=== PATIENT | female | born 1990 | race American Indian/Alaskan Native ===

== ENCOUNTER 2017-07-06 20:00 | Emergency (ER) | payer BC, MEDICAID ==
[2017-07-06 20:01] VITALS: BMI 25.8
[2017-07-06] MEDS ORDERED: Sodium Chloride 0.9% 1,000 ML IV STA (20:14)
--- NOTE | 2017-07-06 20:40 | ED PDOC ---
Arrival/HPI - General Chief Complaint: Female Genitourinary Time Seen by Provider: 07/06/17 20:08 Historian: Patient - History of Present Illness Narrative History of Present Illness (Text): 07/06/17 20:37 27yo female with no PMHx who present with complaint of dizziness x 2days. She reports vaginal bleeding for 3weeks. Notes heavy bleeding. States she uses 6pads daily soak through. Notes previous history of this symptom. States she was transfused in 2014 and thinks she might be anemic now, causing her dizziness. She however denies chest pain, SOB, diaphoresis, nausea, vomiting, any other complaint. Past Medical History - Provider Review Nursing Documentation Reviewed: Yes - Infectious Disease Hx of Infectious Diseases: None - Tetanus Immunization Tetanus Immunization: Unknown - Past Medical History Past Medical History: No Previous - Cardiac Hx Cardiac Disorders: No - Pulmonary Hx Respiratory Disorders: No - Neurological Hx Neurological Disorder: No - HEENT Hx HEENT Disorder: No - Renal Hx Renal Disorder: No - Endocrine/Metabolic Hx Endocrine Disorders: No - Hematological/Oncological Hx Blood Disorders: Yes Hx Anemia: Yes Hx Blood Transfusions: Yes - Integumentary Hx Dermatological Disorder: No - Musculoskeletal/Rheumatological Hx Musculoskeletal Disorders: No - Gastrointestinal Hx Gastrointestinal Disorders: No - Genitourinary/Gynecological Hx Genitourinary Disorders: No - Psychiatric Hx Psychophysiologic Disorder: No Hx Emotional Abuse: No Hx Physical Abuse: No Hx Substance Use: No - Past Surgical History Past Surgical History: No Previous - Anesthesia Hx Anesthesia: No - Suicidal Assessment Feels Threatened In Home Enviroment: No Family/Social History - Physician Review Nursing Documentation Reviewed: Yes Family/Social History: Unknown Family HX Smoking Status: Never Smoked Hx Alcohol Use: No Hx Substance Use: No Hx Substance Use Treatment: No Allergies/Home Meds Allergies/Adverse Reactions: Allergies No Known Allergies Allergy (Verified 07/06/17 20:11) Home Medications: Home Meds Medication Instructions Recorded Confirmed No Known Home Med 07/06/17 07/06/17 Review of Systems - Physician Review All systems were reviewed & negative as marked: Yes - Review of Systems Constitutional: Normal Eyes: Normal ENT: Normal Respiratory: Normal Cardiovascular: Normal Gastrointestinal: Normal Genitourinary Female: Vaginal Bleeding Musculoskeletal: Normal Skin: Normal Neurological: Dizziness. absent: Headache, Focal Weakness Endocrine: Normal Hemo/Lymphatic: Normal Psychiatric: Normal Physical Exam Vital Signs Reviewed: Yes Vital Signs Temp Pulse Resp BP Pulse Ox 07/06/17 21:35 98.9 F 88 18 111/74 100 07/06/17 20:15 88 20 110/75 100 Temperature: Afebrile Blood Pressure: Normal Pulse: Regular Respiratory Rate: Normal Appearance: Positive for: Well-Appearing, Non-Toxic, Comfortable Pain Distress: None Mental Status: Positive for: Alert and Oriented X 3 - Systems Exam Head: Present: Atraumatic, Normocephalic Pupils: Present: PERRL Extroacular Muscles: Present: EOMI Conjunctiva: Present: Normal Mouth: Present: Moist Mucous Membranes Neck: Present: Normal Range of Motion Respiratory/Chest: Present: Clear to Auscultation, Good Air Exchange. No: Respiratory Distress, Accessory Muscle Use Cardiovascular: Present: Regular Rate and Rhythm, Normal S1, S2. No: Murmurs Abdomen: Present: Normal Bowel Sounds. No: Tenderness, Distention, Peritoneal Signs Back: Present: Normal Inspection Upper Extremity: Present: Normal Inspection. No: Cyanosis, Edema Lower Extremity: Present: Normal Inspection. No: Edema Neurological: Present: GCS=15, CN II-XII Intact, Speech Normal, Motor Func Grossly Intact, Normal Sensory Function, Normal Cerebellar Funct, Gait Normal, Normal 2Pt Descrimination, Other (No focal neurological deficit) Skin: Present: Warm, Dry, Normal Color. No: Rashes Psychiatric: Present: Alert, Oriented x 3, Normal Insight, Normal Concentration Medical Decision Making ED Course and Treatment: 07/06/17 21:01 PT in ED for stated history. She was not in any distress in ED. H/H of 10.1 was noted. PT states she is already on iron pill from her STORE SALES CONSULTANT. Result was DW the pt. she was referred to her STORE SALES CONSULTANT. - Lab Interpretations Lab Results: 07/06/17 20:30 07/06/17 20:30 Lab Results 07/06/17 20:30: Urine Color Yellow, Urine Appearance Cloudy, Urine pH 6.0, Ur Specific [place] >= 1.030, Urine Protein Negative, Urine Glucose (UA) Negative, Urine Ketones Trace H, Urine Blood Large H, Urine Nitrate Negative, Urine Bilirubin Negative, Urine Urobilinogen 0.2, Ur Leukocyte Esterase Negative, Urine RBC Tntc, Urine WBC 2 - 5, Ur Epithelial Cells 3 - 4, Urine Bacteria Mod 07/06/17 20:30: Sodium 141, Potassium 4.2, Chloride 104, Carbon Dioxide 29, Anion Gap 12, BUN 12, Creatinine 0.7, Est GFR ( Amer) > 60, Est GFR (Non- Af Amer) > 60, Random Glucose 89, Calcium 9.2, Total Bilirubin 0.3, AST 25, ALT 26, Alkaline Phosphatase 73, Total Protein 7.5, Albumin 4.0, Globulin 3.5, Albumin/Globulin Ratio 1.1 07/06/17 20:30: PT 12.1, INR 1.06, APTT 26.8 07/06/17 20:30: WBC 5.3, RBC 3.32 L, Hgb 10.1 L, Hct 30.5 L, MCV 91.9, MCH 30.4 , MCHC 33.1, RDW 12.3, Plt Count 301, MPV 11.2 H, Gran % 48.4 L, Lymph % (Auto) 39.4 H, [place] % (Auto) 7.3 H, Eos % (Auto) 4.5, Baso % (Auto) 0.4, Gran # 2.57, Lymph # (Auto) 2.1, [place] # (Auto) 0.4, Eos # (Auto) 0.2, Baso # (Auto) 0.02 - Medication Orders Current Medication Orders: Discontinued Medications Sodium Chloride (Sodium Chloride 0.9%) 1,000 mls @ 999 mls/hr IV .Q1H1M STA Stop: 07/06/17 21:14 Last Admin: 07/06/17 20:40 Dose: 999 mls/hr eMAR Start Stop Document 07/06/17 20:40 SF (Rec: 07/06/17 20:47 SF [facility] [id number]) Intravenous Solution Start Date 07/06/17 Start Time 20:40 End Date 07/06/17 End time 21:41 Total Infusion Time 61 Ketorolac Tromethamine (Toradol) 30 mg IVP STAT STA Stop: 07/06/17 20:15 Last Admin: 07/06/17 20:47 Dose: 30 mg MAR Pain Assessment Document 07/06/17 20:47 SF (Rec: 07/06/17 20:47 SF [facility] [id number]) Pain Reassessment Is this a pain reassessment? Yes Sleep Is patient sleeping during reassessment? No Presence of Pain Presence of Pain Yes Pain Scale Used Pain Scale Used Numeric IVP Administration Document 07/06/17 20:47 SF (Rec: 07/06/17 20:47 SF [facility] [id number]) Charges for Administration # of IVP Administrations 1 Disposition/Present on Arrival - Present on Arrival Any Indicators Present on Arrival: No History of DVT/PE: No History of Uncontrolled Diabetes: No Urinary Catheter: No History of Decub. Ulcer: No History Surgical Site Infection Following: None - Disposition Have Diagnosis and Disposition been Completed?: Yes Diagnosis: Dysfunctional uterine bleeding, Dizziness Disposition: HOME/ ROUTINE Disposition Time: 21:00 Patient Plan: Discharge Condition: STABLE Discharge Instructions (ExitCare): Dizziness, Nonvertigo, (DC), Heavy Periods ( DC) Additional Instructions: Follow up with your STORE SALES CONSULTANT Return to ED for any new symptoms Referrals: José Luis Llanos, [Primary Care Provider] - Follow up with primary Esperanza Bales MD [Staff Provider] - Follow up with primary Forms: [employer] (Ugandan), WORK NOTE
[2017-07-06 20:49] LABS: BASO # 0.02 K/mm3 (0.0-2.0); BASO % 0.4 % (0.0-3.0); EOS # 0.2 (0.0-0.7); EOS % 4.5 % (1.5-5.0); GRAN # 2.57 (1.4-6.5); GRAN % 48.4 % (50.0-68.0); HEMOGLOBIN 10.1 g/dL (12.0-16.0); LYMPH # 2.1 (1.2-3.4); LYMPH % 39.4 % (22.0-35.0); MEAN CELL VOLUME 91.9 fl (80.0-105.0); MEAN CORPUSCULAR HEMOGLOBIN 30.4 pg (25.0-35.0); MEAN CORPUSCULAR HGB CONC 33.1 g/dl (31.0-37.0); MEAN PLATELET VOLUME 11.2 fl (7.0-11.0); MONO # 0.4 (0.1-0.6); MONO % 7.3 % (1.0-6.0); RBC 3.32 10^6/uL (3.5-6.1); RED CELL DISTRIBUTION WIDTH 12.3 % (11.5-14.5); WHITE BLOOD COUNT 5.3 10^3/ul (4.5-11.0)
[2017-07-06 20:51] LABS: URINE BILIRUBIN NEGATIVE (NEGATIVE); URINE BLOOD LARGE (NEGATIVE); URINE GLUCOSE (UA) NEGATIVE (NEGATIVE); URINE LEUKOCYTE ESTERASE NEGATIVE Leu/uL (NEGATIVE); URINE NITRATE NEGATIVE (NEGATIVE); URINE PROTEIN NEGATIVE mg/dL (<30 mg/dL); URINE UROBILINOGEN 0.2 E.U./dL (<1 E.U./dL)
[2017-07-06 20:53] LABS: URINE COLOR YELLOW (YELLOW)
[2017-07-06 20:54] LABS: URINE APPEARANCE CLOUDY (CLEAR)
[2017-07-06 20:57] LABS: INR 1.06 (0.93-1.08); PARTIAL THROMBOPLASTIN TIME 26.8 Seconds (25.1-36.5); PROTHROMBIN TIME 12.1 SECONDS (9.4-12.5)
[2017-07-06 20:58] LABS: ALB/GLOB RATIO 1.1 (1.1-1.8); ALT/SGPT 26 U/L (7-56); AST/SGOT 25 U/L (14-36); BLOOD UREA NITROGEN 12 mg/dL (7-21); CALCIUM 9.2 mg/dL (8.4-10.5); GFR AFRICAN-AMERICAN > 60; GFR NON-AFRICAN AMERICAN > 60
[2017-07-06 21:08] LABS: URINE RBC TNTC /hpf (0-2)
[2017-07-06 21:09] LABS: URINE BACTERIA MOD (NEG)
[2017-07-06 21:51] VITALS: BP 111/74; PULSE 88; RESP 18; TEMP 98.9; O2SAT 100
== END 2017-07-06 21:32 | disposition home or self-care (01) ==
LOC: ED 20:00
DX: N93.8 Other specified abnormal uterine and vaginal bleeding (principal); R42 Dizziness and giddiness; D64.9 Anemia, unspecified
CPT/HCPCS: 80053; 81001; 85025; 85610; 85730; 96361; 96374; 99284; J1885; J7040

== ENCOUNTER 2017-08-30 05:25 | Inpatient (IN) | payer MEDICAID ==
[2017-08-30 05:25] VITALS: BMI 25.8
--- NOTE | 2017-08-30 06:21 | ED PDOC ---
Arrival/HPI - General Chief Complaint: Medical Clearance Time Seen by Provider: 08/30/17 05:59 Historian: Patient - History of Present Illness Narrative History of Present Illness (Text): 08/30/17 06:19 A 27 year old female, whose past medical history includes anemia, presents to the emergency department complaining of vaginal bleeding for two months and intermittent lower pelvic pain. 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 Patient notes that today she passes few clots. Reports she had a blood transfusion two years ago due to three weeks of vaginal bleeding. Patient also reports generalized malaise and generalized weakness but denies any other complaints at this time. Time/Duration: Other (2 months) Symptom Onset: Sudden Symptom Course: Unchanged Activities at Onset: Rest Context: Home Past Medical History - Provider Review Nursing Documentation Reviewed: Yes - Infectious Disease Hx of Infectious Diseases: None - Tetanus Immunization Tetanus Immunization: Unknown - Past Medical History Past Medical History: No Previous - Cardiac Hx Cardiac Disorders: No - Pulmonary Hx Respiratory Disorders: No - Neurological Hx Neurological Disorder: No - HEENT Hx HEENT Disorder: No - Renal Hx Renal Disorder: No - Endocrine/Metabolic Hx Endocrine Disorders: No - Hematological/Oncological Hx Blood Disorders: Yes Hx Anemia: Yes Hx Blood Transfusions: Yes - Integumentary Hx Dermatological Disorder: No - Musculoskeletal/Rheumatological Hx Musculoskeletal Disorders: No - Gastrointestinal Hx Gastrointestinal Disorders: No - Genitourinary/Gynecological Hx Genitourinary Disorders: No Other/Comment: dysfunctial uterine bleeding - Psychiatric Hx Psychophysiologic Disorder: No Hx Emotional Abuse: No Hx Physical Abuse: No Hx Substance Use: No - Past Surgical History Past Surgical History: No Previous - Anesthesia Hx Anesthesia: No - Suicidal Assessment Feels Threatened In Home Enviroment: No Family/Social History - Physician Review Nursing Documentation Reviewed: Yes Family/Social History: No Known Family HX Smoking Status: Never Smoked Hx Alcohol Use: Yes Hx Substance Use: No Hx Substance Use Treatment: No Allergies/Home Meds Allergies/Adverse Reactions: Allergies No Known Allergies Allergy (Verified 08/30/17 06:08) Home Medications: Home Meds Medication Instructions Recorded Confirmed Iron Pills 1 tab PO DAILY 08/30/17 08/30/17 Review of Systems - Physician Review All systems were reviewed & negative as marked: Yes - Review of Systems Constitutional: Other (generalized malaise, generalized weakness) Gastrointestinal: Other (pelvic pain) Genitourinary Female: Vaginal Bleeding Physical Exam Vital Signs Reviewed: Yes Vital Signs Temp Pulse Resp BP Pulse Ox 08/30/17 06:08 98.1 F 87 18 111/66 100 Temperature: Afebrile Blood Pressure: Normal Pulse: Regular Respiratory Rate: Normal Appearance: Positive for: Well-Appearing, Non-Toxic, Comfortable Pain Distress: None Mental Status: Positive for: Alert and Oriented X 3 - Systems Exam Head: Present: Atraumatic, Normocephalic Pupils: Present: PERRL Extroacular Muscles: Present: EOMI Conjunctiva: Present: Normal Mouth: Present: Moist Mucous Membranes Neck: Present: Normal Range of Motion Respiratory/Chest: Present: Clear to Auscultation, Good Air Exchange. No: Respiratory Distress, Accessory Muscle Use Cardiovascular: Present: Regular Rate and Rhythm, Normal S1, S2. No: Murmurs Abdomen: No: Tenderness, Distention, Peritoneal Signs Back: Present: Normal Inspection Upper Extremity: Present: Normal Inspection. No: Cyanosis, Edema Lower Extremity: Present: Normal Inspection. No: Edema Neurological: Present: GCS=15, CN II-XII Intact, Speech Normal Skin: Present: Warm, Dry, Normal Color. No: Rashes Psychiatric: Present: Alert, Oriented x 3, Normal Insight, Normal Concentration Medical Decision Making ED Course and Treatment: 08/30/17 06:20 Impression: A 27 year old female with vaginal bleeding and pelvic pain. Plan: -- labs -- Urinalysis -- US transvaginal -- Reassess and disposition Prior Visits: Notes and results from previous visits were reviewed. Patient was last seen in the emergency department on 07/06/17 for evaluation of dizziness and vaginal bleeding. Case endorsed to /pending T/V ultrasound/labs/reassess/final disposition - Lab Interpretations I have reviewed the lab results: Yes - RAD Interpretation Radiology Orders: 08/30/17 06:18 TRANSVAGINAL [US] Stat - Scribe Statement The provider has reviewed the documentation as recorded by the Scribe Jenna Calderon Provider Scribe Attestation: All medical record entries made by the Scribe were at my direction and personally dictated by me. I have reviewed the chart and agree that the record accurately reflects my personal performance of the history, physical exam, medical decision making, and the department course for this patient. I have also personally directed, reviewed, and agree with the discharge instructions and disposition. Disposition/Present on Arrival - Present on Arrival Any Indicators Present on Arrival: No History of DVT/PE: No History of Uncontrolled Diabetes: No Urinary Catheter: No History of Decub. Ulcer: No History Surgical Site Infection Following: None - Disposition Have Diagnosis and Disposition been Completed?: No Diagnosis: Vaginal bleeding, abnormal Disposition Time: 07:00 Condition: STABLE Forms: [employer] (Kittitian)
[2017-08-30 07:03] LABS: MEAN CELL VOLUME 75.9 fl (80.0-105.0); MEAN CORPUSCULAR HEMOGLOBIN 22.4 pg (25.0-35.0); MEAN CORPUSCULAR HGB CONC 29.5 g/dl (31.0-37.0); MEAN PLATELET VOLUME 11.3 fl (7.0-11.0); RBC 2.99 10^6/uL (3.5-6.1); RED CELL DISTRIBUTION WIDTH 17.3 % (11.5-14.5); URINE BILIRUBIN SMALL (NEGATIVE); URINE BLOOD LARGE (NEGATIVE); URINE GLUCOSE (UA) NEGATIVE (NEGATIVE); URINE LEUKOCYTE ESTERASE NEGATIVE Leu/uL (NEGATIVE); URINE PROTEIN 100 mg/dL (<30 mg/dL); WHITE BLOOD COUNT 3.1 10^3/ul (4.5-11.0)
[2017-08-30 07:07] LABS: ALB/GLOB RATIO 1.2 (1.1-1.8); ALBUMIN 3.7 g/dL (3.0-4.8); ALT/SGPT 27 U/L (7-56); AST/SGOT 22 U/L (14-36); BLOOD UREA NITROGEN 16 mg/dL (7-21); CALCIUM 8.7 mg/dL (8.4-10.5); GFR AFRICAN-AMERICAN > 60; GFR NON-AFRICAN AMERICAN > 60; URINE APPEARANCE CLOUDY (CLEAR); URINE COLOR YELLOW (YELLOW)
--- NOTE | 2017-08-30 07:07 | ED PDOC ---
Physical Exam Vital Signs Reviewed: Yes Vital Signs Temp Pulse Resp BP Pulse Ox 08/30/17 07:29 97.8 F 71 18 111/64 99 08/30/17 06:08 98.1 F 87 18 111/66 100 Temperature: Afebrile Blood Pressure: Normal Pulse: Regular Respiratory Rate: Normal Appearance: Positive for: Well-Appearing, Non-Toxic, Comfortable Pain Distress: None Mental Status: Positive for: Alert and Oriented X 3 - Systems Exam Abdomen: Present: Tenderness (lower pelvic), Normal Bowel Sounds. No: Distention, Rebound, Guarding, McBurney's Point Tender, Rovsing's Sign Present Genitourinary/Pelvic Exam: Present: Normal External Genitalia, Vaginal Bleeding (mild pooling), Cervical os Closed, Other (diffuse uterus tenderness; neg chandellier sign). No: Vaginal Discharge, Cervical Motion Tendernes Back: Present: Normal Inspection. No: CVA Tenderness Medical Decision Making ED Course and Treatment: 08/30/17 07:06 Patient endorsed to me by Dr. Mccloud at 07:00, pending ultrasound result and re-evaluation. Report Date : 08/30/2017 08:05:00 EXAM: US Pelvis, Transvaginal Dictated By: Haley Pacheco MD IMPRESSION: Thickened endometrial stripe measuring 1.9 cm. Clinical correlation with menstrual cycle recommended. Multiple small ovarian follicles. Clinical correlation recommended to exclude polycystic ovarian syndrome. No evidence of ovarian torsion. 08/30/17 08:36 Patient's hemoglobin 6. Type and crossed 2 units. Consent obtained with FLAVIA Bustamante as witness. Case discussed with Dr. Osuna OBGYN, who recommends just blood transfusion at this time and repeat HGB. Case discussed with Dr. Lluvia Glasgow who agrees to admit patient to Medical floor for symptomatic anemia/Vaginal Bleeding - Lab Interpretations Lab Results: 08/30/17 06:53 08/30/17 06:53 Lab Results 08/30/17 06:53: Urine Color Yellow, Urine Appearance Cloudy, Urine pH 6.0, Ur Specific [place] >= 1.030, Urine Protein 100 H, Urine Glucose (UA) Negative, Urine Ketones Trace H, Urine Blood Large H, Urine Nitrate Positive H, Urine Bilirubin Small H, Urine Urobilinogen 1.0 H, Ur Leukocyte Esterase Negative, Urine RBC Tntc, Urine WBC 2 - 5, Ur Epithelial Cells 3 - 4, Urine Bacteria Many , Urine HCG, Qual Negative 08/30/17 06:53: PT 12.9 H, INR 1.12 H, APTT 25.1 08/30/17 06:53: Blood Type O POSITIVE, Antibody Screen Negative, Crossmatch See Detail, BBK History Checked Patient has bt 08/30/17 06:53: WBC 3.1 L D, RBC 2.99 L, Hgb 6.7 L* D, Hct 22.7 L, MCV 75.9 L D , MCH 22.4 L, MCHC 29.5 L, RDW 17.3 H, Plt Count 196, MPV 11.3 H 08/30/17 06:53: Sodium 143, Potassium 3.7, Chloride 109 H, Carbon Dioxide 23, Anion Gap 14, BUN 16, Creatinine 0.6 L, Est GFR ( Amer) > 60, Est GFR ( Non-Af Amer) > 60, Random Glucose 99, Calcium 8.7, Total Bilirubin < 0.1 L, AST 22, ALT 27, Alkaline Phosphatase 68, Total Protein 6.8, Albumin 3.7, Globulin 3.1, Albumin/Globulin Ratio 1.2 - RAD Interpretation Radiology Orders: 08/30/17 06:18 TRANSVAGINAL [US] Stat - Medication Orders Current Medication Orders: Discontinued Medications Ketorolac Tromethamine (Toradol) 30 mg IVP STAT STA Stop: 08/30/17 07:14 Last Admin: 08/30/17 07:41 Dose: 30 mg MAR Pain Assessment Document 08/30/17 07:41 SRE (Rec: 08/30/17 07:43 SRE [id number]) Pain Reassessment Is this a pain reassessment? Yes Sleep Is patient sleeping during reassessment? No Presence of Pain Presence of Pain Yes Pain Scale Used Pain Scale Used Numeric Location Pain Location Body Site Abdomen Description Description Intermittent IVP Administration Document 08/30/17 07:41 SRE (Rec: 08/30/17 07:43 SRE [id number]) Charges for Administration # of IVP Administrations 1 - Scribe Statement The provider has reviewed the documentation as recorded by the Scribe Viky Okeefe Provider Scribe Attestation: All medical record entries made by the Scribe were at my direction and personally dictated by me. I have reviewed the chart and agree that the record accurately reflects my personal performance of the history, physical exam, medical decision making, and the department course for this patient. I have also personally directed, reviewed, and agree with the discharge instructions and disposition. Disposition/Present on Arrival - Present on Arrival Any Indicators Present on Arrival: No History of DVT/PE: No History of Uncontrolled Diabetes: No Urinary Catheter: No History of Decub. Ulcer: No History Surgical Site Infection Following: None - Disposition Have Diagnosis and Disposition been Completed?: Yes Diagnosis: Vaginal bleeding, abnormal Disposition: HOSPITALIZED Disposition Time: 08:37 Patient Plan: Admission Patient Problems: Current Active Problems Problem Status Onset Dysfunctional uterine bleeding Acute Vaginal bleeding, abnormal Acute Condition: GUARDED Forms: [employer] (Cameroonian)
[2017-08-30 07:08] LABS: HCG,QUALITATIVE URINE NEGATIVE (NEGATIVE)
[2017-08-30 07:31] LABS: INR 1.12 (0.93-1.08); PARTIAL THROMBOPLASTIN TIME 25.1 Seconds (25.1-36.5); PROTHROMBIN TIME 12.9 SECONDS (9.4-12.5); URINE BACTERIA MANY (NEG); URINE RBC TNTC /hpf (0-2)
[2017-08-30 07:38] LABS: HEMOGLOBIN 6.7 g/dL (12.0-16.0)
--- NOTE | 2017-08-30 08:06 | US ---
EXAM: US Pelvis, Transvaginal CLINICAL HISTORY: 27 years old, female; Pain; Pelvic pain; Additional info: Pain/vaginal bleeding TECHNIQUE: Real-time transvaginal pelvic ultrasound (complete) with image documentation. Transvaginal imaging was used for better evaluation of the endometrium and adnexa. COMPARISON: US - TRANSVAGINAL 2015-04-26 10:09 FINDINGS: Uterus/cervix: Unremarkable measuring 8.5 x 4.5 x 5.2 cm. The endometrial stripe is thickened measuring 1.9 cm. No myometrial mass. Right ovary: The right ovary measures 4.1 x 3.3 x 3.6 cm. There are multiple small peripheral follicles measuring up to 1.3 cm. No mass. Normal blood flow. Left ovary: The left ovary measures 4.0 x 2.8 x 3.5 cm. There are multiple small peripheral follicles measuring up to 1.1 cm. No mass. Normal blood flow. Free fluid: Trace pelvic free fluid. Bladder: Empty bladder which cannot be evaluated with this probe. IMPRESSION: Thickened endometrial stripe measuring 1.9 cm. Clinical correlation with menstrual cycle recommended. Multiple small ovarian follicles. Clinical correlation recommended to exclude polycystic ovarian syndrome. No evidence of ovarian torsion.
[2017-08-30 09:43] LABS: TROPONIN I < 0.01 ng/mL
[2017-08-30] MEDS ORDERED: Sodium Chloride 0.9% 1,000 ML IV SCH (10:00)
[2017-08-30] MEDS: cefTRIAXone 1 gm 1 GM/100 ML BAG IVPB SCH (10:30)
[2017-08-30] MEDS: POLYETHYLENE GLYCOL 3350 17 GM/Dose PACKET PO SCH ×2 (10:47→17:40)
[2017-08-30 10:57] LABS: IRON 16 ug/dL (45-180)
[2017-08-30 11:06] LABS: % IRON SATURATION 4 % (20-55); TOTAL IRON BINDING CAPACITY 386 ug/dL (265-497)
[2017-08-30] MEDS ORDERED: Pneumococcal 23-Valent Vaccine IM ONE (13:56)
--- NOTE | 2017-08-30 15:48 | CP.PCM.HP ---
<Mt Negrete - Last Filed: 08/30/17 16:13> History of Present Illness - History of Present Illness History of Present Illness: IM H&P for Hospitalist Service CC: weakness, vaginal bleeding and clots This is a 27 yo F with PMH of anemia, and anemia 2/2 heavy vaginal bleeding requiring blood transfusion in 2014 who presents with another episode of prolonged vaginal bleeding causing weakness, fatigue, dizziness with exertion, and near-syncope. Pt reports heavy vaginal bleeding for approximately 3 weeks, of intermittent severity, from soaking a pad every 4-5 hrs up to soaking through a pad every hour. Reports that her fatigue/dizziness/near-syncope was similar to that experienced during her serious bleed in 2015. Reports 1 , normal in 2013, no C-sections, no abnormal bleeding when giving . No personal or family hx of bleeding disorders. Reports periods have always been irregular and heavy since menarche at age 15, but only since her child's has she ever had bleeding like this. After last bleeding, she was transfused in ED, sent to follow up with her OB-Tool Analyst (Dr. Jennifer Smith) in the office that day, and underwent D&C. She also reports seeing her OB-obgyn hospitalist physician 6 weeks ago, and at that time, underwent workup for STDs (negative, and not sexually active since) and anemia (positive, started on iron). Reports unable to tolerate PO TID iron, makes her nauseous and vomit, only able to tolerate once daily dosing. Reports no hematuria, melena, hematochezia, hemoptysis, or hematemesis. Denies actual syncopal episode. Admits to constipation, BM once every 3-4 days, which she reports is her baseline, and also reports urinary frequency for 3-4 days (feels like needs to urinate every hour). Denies fevers , chills, shortness of breath at rest, chest pain (at rest or with exertion), PO intolerance, focal weakness or paresthesias, vision changes, or room- spinning sensation at rest. All other ROS in 12-system review negative. Of note, Hgb in the ED was 6.7, so after discussion with OB-Tool Analyst, 2 units of pRBCs were ordered for transfusion. Additionally, a transvaginal US was obtained, which was notable for multiple small ovarian follicles bilaterally. PMH: as above PSH: denies Fam Hx: HTN in mother, otherwise pt unsure, unaware of any family hx of bleeding disorders Soc Hx: denies tobacco, alcohol, illicits/IVDA sexually active, not using protection, multiple partners, hx of Trichomonas in 2004 otherwise no STD hx, reports negative STD w/u at OB-Tool Analyst's 6 weeks prior and not sexually active since that time PMD: None OB-Tool Analyst: Dr. Jennifer Smith Present on Admission - Present on Admission Any Indicators Present on Admission: No History of DVT/PE: No History of Uncontrolled Diabetes: No Urinary Catheter: No Review of Systems - Review of Systems All systems: reviewed and no additional remarkable complaints except (as per HPI ) Past Patient History - Infectious Disease Hx of Infectious Diseases: None - Tetanus Immunizations Tetanus Immunization: Unknown - Past Social History Smoking Status: Never Smoked - CARDIAC Hx Cardiac Disorders: No - PULMONARY Hx Respiratory Disorders: No - NEUROLOGICAL Hx Neurological Disorder: No - HEENT Hx HEENT Problems: No - RENAL Hx Chronic Kidney Disease: No - ENDOCRINE/METABOLIC Hx Endocrine Disorders: No - HEMATOLOGICAL/ONCOLOGICAL Hx Blood Disorders: Yes Hx Anemia: Yes - INTEGUMENTARY Hx Dermatological Problems: No - MUSCULOSKELETAL/RHEUMATOLOGICAL Hx Musculoskeletal Disorders: No Hx Falls: No - GASTROINTESTINAL Hx Gastrointestinal Disorders: No - GENITOURINARY/GYNECOLOGICAL Hx Genitourinary Disorders: No - PSYCHIATRIC Hx Psychophysiologic Disorder: No - SURGICAL HISTORY Hx Surgeries: No - ANESTHESIA Hx Anesthesia: No Meds Allergies/Adverse Reactions: Allergies Allergy/AdvReac Type Severity Reaction Status Date / Time No Known Allergies Allergy Verified 08/30/17 06:08 Physical Exam - Constitutional Appears: Non-toxic, No Acute Distress - Head Exam Head Exam: ATRAUMATIC, NORMAL INSPECTION, NORMOCEPHALIC - Eye Exam Eye Exam: EOMI, PERRL. absent: Conjunctival injection, Normal appearance, Scleral icterus Pupil Exam: NORMAL ACCOMODATION, PERRL. absent: Fixed, Irregular, Unequal Additional comments: pale conjunctiva bilaterally - ENT Exam ENT Exam: Mucous Membranes Moist - Neck Exam Neck exam: Positive for: Full Rom, Normal Inspection - Respiratory Exam Respiratory Exam: Clear to Auscultation Bilateral, NORMAL BREATHING PATTERN. absent: Accessory Muscle Use, Decreased Breath Sounds, Prolonged Expiratory Phase, Rales, Rhonchi, Wheezes - Cardiovascular Exam Cardiovascular Exam: REGULAR RHYTHM, RRR, +S1, +S2. absent: Bradycardia, Tachycardia, Irregular Rhythm, JVD, +S4 - GI/Abdominal Exam GI & Abdominal Exam: Normal Bowel Sounds, Soft. absent: Diminished Bowel Sounds , Distended, Firm, Hyperactive Bowel Sounds, Rigid, Tenderness - Extremities Exam Extremities exam: Positive for: normal capillary refill, normal inspection, pedal pulses present. Negative for: calf tenderness, pedal edema, tenderness - Back Exam Back exam: absent: CVA tenderness (L), CVA tenderness (R) - Neurological Exam Neurological exam: Alert, Oriented x3 Additional comments: awake and alert, following all commands, moving all extremities spontaneously motor appears grossly intact and equal - Psychiatric Exam Psychiatric exam: Normal Affect, Normal Mood - Skin Skin Exam: Dry, Intact, Normal Color, Warm Results - Vital Signs Recent Vital Signs: Last Vital Signs Temp 98.1 F 08/30/17 13:14 Pulse 68 08/30/17 13:14 Resp 18 08/30/17 13:35 BP 114/67 08/30/17 13:14 Pulse Ox 100 08/30/17 09:07 - Labs Result Diagrams: 08/30/17 06:53 08/30/17 06:53 Labs: Laboratory Results - last 24 hr 08/30/17 08/30/17 08/30/17 09:00 10:30 10:30 Iron 16 L TIBC 386 % Saturation 4 L Troponin I < 0.01 TSH 3rd Generation 0.78 Assessment & Plan - Assessment and Plan (Free Text) Assessment: This is a 27 yo F with PMH of anemia, and anemia 2/2 heavy vaginal bleeding requiring blood transfusion in 2014 who presents with another episode of prolonged vaginal bleeding causing weakness, fatigue, dizziness with exertion, and near-syncope. She is being admitted for observation due to symptomatic blood loss anemia 2/2 heavy vaginal bleeding, pending transfusion of 2 units pRBCs. Plan: 1) Vaginal bleeding -etiology unclear, pt denies trauma, not sexually active in last 6 weeks, no recent pregnancies; possibly 2/2 PCOS given transvaginal US findings -Transvaginal US obtained, notable for multiple small ovarian follicles -Hgb 6.7, pending 2 units pRBCs, will recheck H&H 1 hr after last unit transfused to determine if additional transfusions needed -TSH, total and free testosterone, LH, FSH, and androstenedione ordered to assess for possible PCOS, f/u -OB-Tool Analyst consulted, as per ED attending, recs transfusion pRBCs and follow up; appreciate any further recs 2) Urinary frequency -UA notable for large blood, positive nitrates, TNTC RBCs, Many bacteria -blood likely 2/2 vaginal bleeding, not UTI, but Nitrates and bacteria in setting of urinary freq highly suspicious -Urine culture ordered, f/u -started on rocephin 1g IVPB daily 3) Hx iron deficiency anemia -likely due to irregular and heavy periods (possibly 2/2 PCOS) -iron panel ordered -pt unable to tolerate PO iron TID, may benefit from IV Venofer dose, will await iron panel results -chronic constipation may be cause of PO iron intolerance, started pt on Miralax BID to improve BM frequency (currently once per 3-4 days), possibly improve PO iron intake Dispo: Tele obs, pending H&H recheck, IV abx for likely UTI FEN: HHD, NS 150cc/hr x1 bag Access: Peripheral IV Consults: OB-Tool Analyst Ppx: pepcid for GI, SCDs for DVT (avoid AC in setting of acute bleeding) Pt seen, reviewed, and discussed with attending, Dr. Glasgow. Decision To Admit - Pt Status Changed To: Hospital Disposition Of: Observation - . Bed Request Type: Telemetry <Lluvia Glasgow - Last Filed: 08/31/17 14:25> Results - Vital Signs Recent Vital Signs: Last Vital Signs Temp 98.4 F 08/31/17 06:00 Pulse 65 08/31/17 06:00 Resp 18 08/31/17 06:00 BP 117/56 L 08/31/17 06:00 Pulse Ox 100 08/31/17 06:00 - Labs Result Diagrams: 08/31/17 06:00 08/31/17 06:00 Labs: Laboratory Results - last 24 hr 08/30/17 08/30/17 08/31/17 09:00 17:10 06:00 WBC 4.2 L D RBC 3.87 Hgb 9.3 L D 9.3 L Hct 29.8 L 30.1 L MCV 77.8 L MCH 24.0 L MCHC 30.9 L RDW 16.8 H Plt Count 167 MPV 10.6 Gran % 48.2 L Lymph % (Auto) 36.9 H Todd % (Auto) 8.2 H Eos % (Auto) 6.2 H Baso % (Auto) 0.5 Gran # 2.01 Lymph # (Auto) 1.5 Todd # (Auto) 0.3 Eos # (Auto) 0.3 Baso # (Auto) 0.02 PT INR APTT Sodium Potassium Chloride Carbon Dioxide Anion Gap BUN Creatinine Est GFR ( Amer) Est GFR (Non-Af Amer) Random Glucose Calcium Phosphorus Magnesium Ferritin 4.4 Total Bilirubin AST ALT Alkaline Phosphatase Total Protein Albumin Globulin Albumin/Globulin Ratio FSH 3rd Generation 5.2 Luteinizing Hormone 16.5 08/31/17 08/31/17 06:00 06:00 WBC RBC Hgb Hct MCV MCH MCHC RDW Plt Count MPV Gran % Lymph % (Auto) Todd % (Auto) Eos % (Auto) Baso % (Auto) Gran # Lymph # (Auto) Todd # (Auto) Eos # (Auto) Baso # (Auto) PT 12.6 H INR 1.09 H APTT 25.5 Sodium 143 Potassium 3.9 Chloride 109 H Carbon Dioxide 26 Anion Gap 13 BUN 11 Creatinine 0.7 Est GFR ( Amer) > 60 Est GFR (Non-Af Amer) > 60 Random Glucose 92 Calcium 8.6 Phosphorus 3.5 Magnesium 1.9 Ferritin Total Bilirubin 0.2 AST 20 ALT 24 Alkaline Phosphatase 60 Total Protein 6.4 Albumin 3.5 Globulin 2.9 Albumin/Globulin Ratio 1.2 FSH 3rd Generation Luteinizing Hormone Attending/Attestation - Attestation I have personally seen and examined this patient.: Yes I have fully participated in the care of the patient.: Yes I have reviewed all pertinent clinical information: Yes Notes (Text): I have seen and examined the patient at bedside. Agree with the above note. Will give 2 units of PRBC. TV ultrasound result noted. Upon discharge patient will follow up with Dr Smith.
[2017-08-30 16:55] LABS: FSH 5.2 mIU/mL
[2017-08-30 17:12] LABS: FERRITIN 4.4 ng/mL
[2017-08-30 17:20] LABS: HEMOGLOBIN 9.3 g/dL (12.0-16.0)
[2017-08-31 06:27] LABS: BASO # 0.02 K/mm3 (0.0-2.0); BASO % 0.5 % (0.0-3.0); EOS # 0.3 (0.0-0.7); EOS % 6.2 % (1.5-5.0); GRAN # 2.01 (1.4-6.5); GRAN % 48.2 % (50.0-68.0); HEMOGLOBIN 9.3 g/dL (12.0-16.0); LYMPH # 1.5 (1.2-3.4); LYMPH % 36.9 % (22.0-35.0); MEAN CELL VOLUME 77.8 fl (80.0-105.0); MEAN CORPUSCULAR HGB CONC 30.9 g/dl (31.0-37.0); MEAN PLATELET VOLUME 10.6 fl (7.0-11.0); MONO # 0.3 (0.1-0.6); MONO % 8.2 % (1.0-6.0); RBC 3.87 10^6/uL (3.5-6.1); RED CELL DISTRIBUTION WIDTH 16.8 % (11.5-14.5); WHITE BLOOD COUNT 4.2 10^3/ul (4.5-11.0)
[2017-08-31 06:43] LABS: INR 1.09 (0.93-1.08); PARTIAL THROMBOPLASTIN TIME 25.5 Seconds (25.1-36.5); PROTHROMBIN TIME 12.6 SECONDS (9.4-12.5)
[2017-08-31 06:50] LABS: ALB/GLOB RATIO 1.2 (1.1-1.8); ALBUMIN 3.5 g/dL (3.0-4.8); ALT/SGPT 24 U/L (7-56); AST/SGOT 20 U/L (14-36); BLOOD UREA NITROGEN 11 mg/dL (7-21); CALCIUM 8.6 mg/dL (8.4-10.5); GFR AFRICAN-AMERICAN > 60; GFR NON-AFRICAN AMERICAN > 60
[2017-08-31] MEDS: cefTRIAXone 1 gm 1 GM/100 ML BAG IVPB SCH (10:47)
[2017-08-31] MEDS: POLYETHYLENE GLYCOL 3350 17 GM/Dose PACKET PO SCH (10:47)
[2017-08-31 13:10] VITALS: BP 117/56; PULSE 65; RESP 18; TEMP 98.4; O2SAT 100
--- NOTE | 2017-08-31 14:45 | CP.PCM.DIS ---
<Mt Negrete - Last Filed: 08/31/17 14:37> Provider - Provider Date of Admission: 08/30/17 08:32 Attending physician: Lluvia Glasgow MD Primary care physician: None Consults: Ob-software configuration engineer: Enrrique Time Spent in preparation of Discharge (in minutes): 35 Diagnosis - Discharge Diagnosis (1) Vaginal bleeding Status: Resolved Priority: High (2) Heavy menstrual period Status: Chronic Priority: Medium (3) Iron deficiency anemia due to chronic blood loss Status: Acute Priority: High (4) Anemia requiring transfusions Status: Resolved Priority: High Hospital Course - Lab Results Lab Results: Most Recent Lab Values WBC 4.2 10^3/ul (4.5-11.0) L D 08/31/17 06:00 RBC 3.87 10^6/uL (3.5-6.1) 08/31/17 06:00 Hgb 9.3 g/dL (12.0-16.0) L 08/31/17 06:00 Hct 30.1 % (36.0-48.0) L 08/31/17 06:00 MCV 77.8 fl (80.0-105.0) L 08/31/17 06:00 MCH 24.0 pg (25.0-35.0) L 08/31/17 06:00 MCHC 30.9 g/dl (31.0-37.0) L 08/31/17 06:00 RDW 16.8 % (11.5-14.5) H 08/31/17 06:00 Plt Count 167 10^3/uL (120.0-450.0) 08/31/17 06:00 MPV 10.6 fl (7.0-11.0) 08/31/17 06:00 Gran % 48.2 % (50.0-68.0) L 08/31/17 06:00 Lymph % (Auto) 36.9 % (22.0-35.0) H 08/31/17 06:00 [place] % (Auto) 8.2 % (1.0-6.0) H 08/31/17 06:00 Eos % (Auto) 6.2 % (1.5-5.0) H 08/31/17 06:00 Baso % (Auto) 0.5 % (0.0-3.0) 04/25/18 06:00 Gran # 2.01 (1.4-6.5) 08/31/17 06:00 Lymph # (Auto) 1.5 (1.2-3.4) 08/31/17 06:00 [place] # (Auto) 0.3 (0.1-0.6) 08/31/17 06:00 Eos # (Auto) 0.3 (0.0-0.7) 08/31/17 06:00 Baso # (Auto) 0.02 K/mm3 (0.0-2.0) 08/31/17 06:00 PT 12.6 SECONDS (9.4-12.5) H 08/31/17 06:00 INR 1.09 (0.93-1.08) H 08/31/17 06:00 APTT 25.5 Seconds (25.1-36.5) 08/31/17 06:00 Sodium 143 mmol/L (132-148) 08/31/17 06:00 Potassium 3.9 mmol/L (3.6-5.0) 08/31/17 06:00 Chloride 109 mmol/L (98-107) H 08/31/17 06:00 Carbon Dioxide 26 mmol/L (21-33) 08/31/17 06:00 Anion Gap 13 (10-20) 08/31/17 06:00 BUN 11 mg/dL (7-21) 08/31/17 06:00 Creatinine 0.7 mg/dl (0.7-1.2) 08/31/17 06:00 Est GFR ( Amer) > 60 08/31/17 06:00 Est GFR (Non-Af Amer) > 60 08/31/17 06:00 Random Glucose 92 mg/dL (70-110) 08/31/17 06:00 Calcium 8.6 mg/dL (8.4-10.5) 08/31/17 06:00 Phosphorus 3.5 mg/dL (2.5-4.5) 08/31/17 06:00 Magnesium 1.9 mg/dL (1.7-2.2) 08/31/17 06:00 Iron 16 ug/dL (45-180) L 08/30/17 10:30 TIBC 386 ug/dL (265-497) 08/30/17 10:30 % Saturation 4 % (20-55) L 08/30/17 10:30 Ferritin 4.4 ng/mL 08/30/17 09:00 Total Bilirubin 0.2 mg/dL (0.2-1.3) 08/31/17 06:00 AST 20 U/L (14-36) 08/31/17 06:00 ALT 24 U/L (7-56) 08/31/17 06:00 Alkaline Phosphatase 60 U/L (38-126) 08/31/17 06:00 Troponin I < 0.01 ng/mL 08/30/17 09:00 Total Protein 6.4 g/dL (5.8-8.3) 08/31/17 06:00 Albumin 3.5 g/dL (3.0-4.8) 08/31/17 06:00 Globulin 2.9 gm/dL 08/31/17 06:00 Albumin/Globulin Ratio 1.2 (1.1-1.8) 08/31/17 06:00 TSH 3rd Generation 0.78 mIU/mL (0.46-4.68) 08/30/17 10:30 FSH 3rd Generation 5.2 mIU/mL 08/30/17 09:00 Luteinizing Hormone 16.5 mIU/mL 08/30/17 09:00 Urine Color Yellow (YELLOW) 08/30/17 06:53 Urine Appearance Cloudy (CLEAR) 08/30/17 06:53 Urine pH 6.0 (4.7-8.0) 08/30/17 06:53 Ur Specific [place] >= 1.030 (1.005-1.035) 08/30/17 06:53 Urine Protein 100 mg/dL (<30 mg/dL) H 08/30/17 06:53 Urine Glucose (UA) Negative mg/dL (NEGATIVE) 08/30/17 06:53 Urine Ketones Trace mg/dL (NEGATIVE) H 08/30/17 06:53 Urine Blood Large (NEGATIVE) H 08/30/17 06:53 Urine Nitrate Positive (NEGATIVE) H 08/30/17 06:53 Urine Bilirubin Small (NEGATIVE) H 08/30/17 06:53 Urine Urobilinogen 1.0 E.U./dL (<1 E.U./dL) H 08/30/17 06:53 Ur Leukocyte Esterase Negative Fabio/uL (NEGATIVE) 08/30/17 06:53 Urine RBC Tntc /hpf (0-2) 08/30/17 06:53 Urine WBC 2 - 5 /hpf (0-6) 08/30/17 06:53 Ur Epithelial Cells 3 - 4 /hpf (0-5) 08/30/17 06:53 Urine Bacteria Many (NEG) 08/30/17 06:53 Urine HCG, Qual Negative (NEGATIVE) 08/30/17 06:53 Blood Type O POSITIVE 08/30/17 06:53 Antibody Screen Negative 08/30/17 06:53 Crossmatch See Detail 08/30/17 06:53 BBK History Checked Patient has bt 08/30/17 06:53 - Hospital Course Hospital Course: This is a 27 yo F with PMH of anemia, and anemia 2/2 heavy vaginal bleeding requiring blood transfusion in 2014 who presents with another episode of prolonged vaginal bleeding causing weakness, fatigue, dizziness with exertion, and near-syncope. Pt reports heavy vaginal bleeding for approximately 3 weeks, of intermittent severity, from soaking a pad every 4-5 hrs up to soaking through a pad every hour. While here, she was found to have a Hgb of 6.7, requiring transfusion. She was given 2 units pRBCs, and her Hgb improved to 9.3 , where it remained today. Pt reports resolution of dizziness, weakness, and fatigue. Labs and transvaginal US obtained were highly suspicious for PCOS. Patient was instructed to follow up with her OB-Ed Special Education Teacher (Jennifer Smith) within 1 week of discharge. She was also instructed to establish herself with a PMD and follow up within 1 week; she was given a referral and a card for the [facility] to follow up with in 1 week if she was unable to establish herself with a PMD by then. She was also found to have a UTI with complaint of urinary frequency, for which she received 2 doses of IVPB rocephin 1g, and she was given a prescription for 5 days of Cipro 500mg BID (for total tx of 7 days), filled at the in-house outpatient pharmacy for availability at time of discharge. She was instructed to finish the course of Cipro, to start PO Miralax (over the counter) up to 2 times per day to increase her BM frequency to at least once daily, and to continue taking her PO iron. She expressed understanding and agreement with all of these instructions. She was then discharged to home. Patient seen, reviewed, and discussed with attending, Dr. Glasgow. Discharge Exam - Additional Findings Additional findings: - Constitutional Appears: Non-toxic, No Acute Distress - Head Exam Head Exam: ATRAUMATIC, NORMAL INSPECTION, NORMOCEPHALIC - Eye Exam Eye Exam: EOMI, PERRL. absent: Conjunctival injection, Normal appearance, Scleral icterus Pupil Exam: NORMAL ACCOMODATION, PERRL. absent: Fixed, Irregular, Unequal - ENT Exam ENT Exam: Mucous Membranes Moist - Neck Exam Neck exam: Positive for: Full Rom, Normal Inspection - Respiratory Exam Respiratory Exam: Clear to Auscultation Bilateral, NORMAL BREATHING PATTERN. absent: Accessory Muscle Use, Decreased Breath Sounds, Prolonged Expiratory Phase, Rales, Rhonchi, Wheezes - Cardiovascular Exam Cardiovascular Exam: REGULAR RHYTHM, RRR, +S1, +S2. absent: Bradycardia, Tachycardia, Irregular Rhythm, JVD, +S4 - GI/Abdominal Exam GI & Abdominal Exam: Normal Bowel Sounds, Soft. absent: Diminished Bowel Sounds , Distended, Firm, Hyperactive Bowel Sounds, Rigid, Tenderness - Extremities Exam Extremities exam: Positive for: normal capillary refill, normal inspection, pedal pulses present. Negative for: calf tenderness, pedal edema, tenderness - Back Exam Back exam: absent: CVA tenderness (L), CVA tenderness (R) - Neurological Exam Neurological exam: Alert, Oriented x3 awake and alert, following all commands, moving all extremities spontaneously motor appears grossly intact and equal - Psychiatric Exam Psychiatric exam: Normal Affect, Normal Mood - Skin Skin Exam: Dry, Intact, Normal Color, Warm Discharge Plan - Discharge Medications Prescriptions: Ciprofloxacin [Cipro] 500 mg PO BID #10 tab - Follow Up Plan Condition: GUARDED Disposition: HOME/ ROUTINE Instructions: Polycystic Ovary Syndrome, Blood Transfusion , Anemia Caused by Low Iron, Adult (DC), Heavy Periods (DC) Additional Instructions: -Please resume your home medications as previously prescribed. -Please obtain Miralax (over the counter) for your constipation. You should be moving your bowels at least 1x per day. You can take it up to twice per day. Improvement of your bowel movement frequency may enable you to better tolerate your iron supplement. -Please establish yourself with a primary medical doctor and follow up with him/ her within 1 week of discharge (a referral and a card for the [facility] have been provided; alternatively, please contact your insurance to find out which physicians in the area participate in your plan ). -Please follow up with your OB-Ed Special Education Teacher (Dr. Smith) within 1 week of discharge. -Please report to a hospital if you experience worsening or concerning symptoms. If you experience non-stop bleeding with shortness of breath at rest , feeling of passing out, or extreme weakness, return to a hospital immediately. -Avoid taking any aspirin unless otherwise directed by your PMD or Rattle Leak And Squeak Repairer. Referrals: Jennifer Smith MD [Other] [facility] at [facility] [Outside] <Lluvia Glasgow - Last Filed: 08/31/17 16:08> Provider - Provider Date of Admission: 08/30/17 08:32 Attending physician: Lluvia Glasgow MD Hospital Course - Lab Results Lab Results: Most Recent Lab Values WBC 4.2 10^3/ul (4.5-11.0) L D 08/31/17 06:00 RBC 3.87 10^6/uL (3.5-6.1) 08/31/17 06:00 Hgb 9.3 g/dL (12.0-16.0) L 08/31/17 06:00 Hct 30.1 % (36.0-48.0) L 08/31/17 06:00 MCV 77.8 fl (80.0-105.0) L 08/31/17 06:00 MCH 24.0 pg (25.0-35.0) L 08/31/17 06:00 MCHC 30.9 g/dl (31.0-37.0) L 08/31/17 06:00 RDW 16.8 % (11.5-14.5) H 08/31/17 06:00 Plt Count 167 10^3/uL (120.0-450.0) 08/31/17 06:00 MPV 10.6 fl (7.0-11.0) 08/31/17 06:00 Gran % 48.2 % (50.0-68.0) L 08/31/17 06:00 Lymph % (Auto) 36.9 % (22.0-35.0) H 08/31/17 06:00 [place] % (Auto) 8.2 % (1.0-6.0) H 08/31/17 06:00 Eos % (Auto) 6.2 % (1.5-5.0) H 08/31/17 06:00 Baso % (Auto) 0.5 % (0.0-3.0) 08/31/17 06:00 Gran # 2.01 (1.4-6.5) 08/31/17 06:00 Lymph # (Auto) 1.5 (1.2-3.4) 08/31/17 06:00 [place] # (Auto) 0.3 (0.1-0.6) 08/31/17 06:00 Eos # (Auto) 0.3 (0.0-0.7) 08/31/17 06:00 Baso # (Auto) 0.02 K/mm3 (0.0-2.0) 08/31/17 06:00 PT 12.6 SECONDS (9.4-12.5) H 08/31/17 06:00 INR 1.09 (0.93-1.08) H 08/31/17 06:00 APTT 25.5 Seconds (25.1-36.5) 08/31/17 06:00 Sodium 143 mmol/L (132-148) 08/31/17 06:00 Potassium 3.9 mmol/L (3.6-5.0) 08/31/17 06:00 Chloride 109 mmol/L (98-107) H 08/31/17 06:00 Carbon Dioxide 26 mmol/L (21-33) 08/31/17 06:00 Anion Gap 13 (10-20) 08/31/17 06:00 BUN 11 mg/dL (7-21) 08/31/17 06:00 Creatinine 0.7 mg/dl (0.7-1.2) 08/31/17 06:00 Est GFR ( Amer) > 60 08/31/17 06:00 Est GFR (Non-Af Amer) > 60 08/31/17 06:00 Random Glucose 92 mg/dL (70-110) 08/31/17 06:00 Calcium 8.6 mg/dL (8.4-10.5) 08/31/17 06:00 Phosphorus 3.5 mg/dL (2.5-4.5) 08/31/17 06:00 Magnesium 1.9 mg/dL (1.7-2.2) 08/31/17 06:00 Iron 16 ug/dL (45-180) L 08/30/17 10:30 TIBC 386 ug/dL (265-497) 08/30/17 10:30 % Saturation 4 % (20-55) L 08/30/17 10:30 Ferritin 4.4 ng/mL 08/30/17 09:00 Total Bilirubin 0.2 mg/dL (0.2-1.3) 08/31/17 06:00 AST 20 U/L (14-36) 08/31/17 06:00 ALT 24 U/L (7-56) 08/31/17 06:00 Alkaline Phosphatase 60 U/L (38-126) 08/31/17 06:00 Troponin I < 0.01 ng/mL 08/30/17 09:00 Total Protein 6.4 g/dL (5.8-8.3) 08/31/17 06:00 Albumin 3.5 g/dL (3.0-4.8) 08/31/17 06:00 Globulin 2.9 gm/dL 08/31/17 06:00 Albumin/Globulin Ratio 1.2 (1.1-1.8) 08/31/17 06:00 TSH 3rd Generation 0.78 mIU/mL (0.46-4.68) 08/30/17 10:30 FSH 3rd Generation 5.2 mIU/mL 08/30/17 09:00 Luteinizing Hormone 16.5 mIU/mL 08/30/17 09:00 Urine Color Yellow (YELLOW) 08/30/17 06:53 Urine Appearance Cloudy (CLEAR) 08/30/17 06:53 Urine pH 6.0 (4.7-8.0) 08/30/17 06:53 Ur Specific [place] >= 1.030 (1.005-1.035) 08/30/17 06:53 Urine Protein 100 mg/dL (<30 mg/dL) H 08/30/17 06:53 Urine Glucose (UA) Negative mg/dL (NEGATIVE) 08/30/17 06:53 Urine Ketones Trace mg/dL (NEGATIVE) H 08/30/17 06:53 Urine Blood Large (NEGATIVE) H 08/30/17 06:53 Urine Nitrate Positive (NEGATIVE) H 08/30/17 06:53 Urine Bilirubin Small (NEGATIVE) H 08/30/17 06:53 Urine Urobilinogen 1.0 E.U./dL (<1 E.U./dL) H 08/30/17 06:53 Ur Leukocyte Esterase Negative Fabio/uL (NEGATIVE) 08/30/17 06:53 Urine RBC Tntc /hpf (0-2) 08/30/17 06:53 Urine WBC 2 - 5 /hpf (0-6) 08/30/17 06:53 Ur Epithelial Cells 3 - 4 /hpf (0-5) 08/30/17 06:53 Urine Bacteria Many (NEG) 08/30/17 06:53 Urine HCG, Qual Negative (NEGATIVE) 08/30/17 06:53 Blood Type O POSITIVE 08/30/17 06:53 Antibody Screen Negative 08/30/17 06:53 Crossmatch See Detail 08/30/17 06:53 BBK History Checked Patient has bt 08/30/17 06:53 Attending/Attestation - Attestation I have personally seen and examined this patient.: Yes I have fully participated in the care of the patient.: Yes I have reviewed all pertinent clinical information, including history, physical exam and plan: Yes Notes (Text): I have seen and examined the patient at bedside. Agree with the note above. Vaginal bleeding has improved. Patient is not passing clots anymore. Hb improved from 6 to 9 after 2 units of PRBC. Follow up with Dr Luis Byrne within 3-5 days.
== END 2017-08-31 13:28 | disposition home or self-care (01) | DRG 395 ==
LOC: ED 05:25 → ERH 08:32 → 3RSO 11:04
PROVIDERS: ADMIT Hospitalist; ATTEND Hospitalist
PROC: 30233N1 Transfusion of Nonautologous Red Blood Cells into Peripheral Vein, Percutaneous Approach (ICD-10-PCS; principal; 2017-08-30)
DX: D50.0 Iron deficiency anemia secondary to blood loss (chronic) (principal); N39.0 Urinary tract infection, site not specified; N92.0 Excessive and frequent menstruation with regular cycle; K59.00 Constipation, unspecified; Z82.49 Family history of ischemic heart disease and other diseases of the circulatory system

== ENCOUNTER 2017-09-28 16:06 | Emergency (ER) | payer MEDICAID ==
[2017-09-28 16:13] VITALS: BMI 24.3
--- NOTE | 2017-09-28 16:32 | ED PDOC ---
Arrival/HPI - General Chief Complaint: Female Genitourinary Time Seen by Provider: 09/28/17 16:20 Historian: Patient - History of Present Illness Narrative History of Present Illness (Text): 09/28/17 16:31 27 year old female, LMP unknown, , whose past medical history includes iron deficiency anemia, no food or drug allergies, presents to the emergency department complaining of lower pelvic pain and vaginal spotting for the past 3 days. Patient reports bleeding started about 3 days ago, noted to have clot today. Denies any recent travels. Patient denies any fever, chills, vomiting, diarrhea, flank pain, rashes, headache, neck stiffness, or any other medical or psychological complaints at this time. Time/Duration: Other (3 days) Symptom Onset: Sudden Symptom Course: Unchanged Activities at Onset: Rest Context: Home Past Medical History - Provider Review Nursing Documentation Reviewed: Yes - Infectious Disease Hx of Infectious Diseases: None - Tetanus Immunization Tetanus Immunization: Unknown - Past Medical History Past Medical History: No Previous - Cardiac Hx Cardiac Disorders: No - Pulmonary Hx Respiratory Disorders: No - Neurological Hx Neurological Disorder: No - HEENT Hx HEENT Disorder: No - Renal Hx Renal Disorder: No - Endocrine/Metabolic Hx Endocrine Disorders: No - Hematological/Oncological Hx Blood Disorders: Yes Hx Anemia: Yes - Integumentary Hx Dermatological Disorder: No - Musculoskeletal/Rheumatological Hx Musculoskeletal Disorders: No Hx Falls: No - Gastrointestinal Hx Gastrointestinal Disorders: No - Genitourinary/Gynecological Hx Genitourinary Disorders: No - Psychiatric Hx Psychophysiologic Disorder: No Hx Substance Use: No - Past Surgical History Past Surgical History: No Previous - Anesthesia Hx Anesthesia: No - Suicidal Assessment Feels Threatened In Home Enviroment: No Family/Social History - Physician Review Nursing Documentation Reviewed: Yes Family/Social History: No Known Family HX Smoking Status: Never Smoked Hx Alcohol Use: Yes Hx Substance Use: No Hx Substance Use Treatment: No Allergies/Home Meds Allergies/Adverse Reactions: Allergies No Known Allergies Allergy (Verified 09/28/17 16:13) Home Medications: Home Meds Medication Instructions Recorded Confirmed Iron Pills 1 tab PO DAILY 08/30/17 09/28/17 Review of Systems - Physician Review All systems were reviewed & negative as marked: Yes - Review of Systems Constitutional: absent: Fatigue, Fevers Respiratory: absent: SOB, Cough Cardiovascular: absent: Chest Pain Gastrointestinal: Other (suprapubic pain). absent: Abdominal Pain, Diarrhea, Nausea, Vomiting Genitourinary Female: Vaginal Bleeding. absent: Dysuria, Frequency, Hematuria, Urine Output Changes, Vaginal Discharge Musculoskeletal: absent: Arthralgias, Myalgias Skin: absent: Rash Neurological: absent: Headache, Dizziness Psychiatric: absent: Anxiety, Depression Physical Exam Vital Signs Reviewed: Yes Vital Signs Pulse Resp BP Pulse Ox 09/28/17 17:11 82 18 120/66 100 Appearance: Positive for: Well-Appearing, Non-Toxic, Comfortable Pain Distress: Mild Mental Status: Positive for: Alert and Oriented X 3 - Systems Exam Head: Present: Atraumatic, Normocephalic Pupils: Present: PERRL Extroacular Muscles: Present: EOMI Conjunctiva: Present: Normal Mouth: Present: Moist Mucous Membranes Neck: Present: Normal Range of Motion Respiratory/Chest: Present: Clear to Auscultation, Good Air Exchange. No: Respiratory Distress, Accessory Muscle Use Cardiovascular: Present: Regular Rate and Rhythm, Normal S1, S2. No: Murmurs Abdomen: No: Tenderness, Distention, Peritoneal Signs, Rebound, Guarding Genitourinary/Pelvic Exam: Present: Other (Pt. declined) Back: Present: Normal Inspection. No: CVA Tenderness Upper Extremity: Present: Normal Inspection. No: Cyanosis, Edema Lower Extremity: Present: Normal Inspection. No: Edema Neurological: Present: GCS=15, CN II-XII Intact, Speech Normal, Motor Func Grossly Intact, Gait Normal, Memory Normal Skin: Present: Warm, Dry, Normal Color. No: Rashes Psychiatric: Present: Alert, Oriented x 3, Normal Insight, Normal Concentration Medical Decision Making ED Course and Treatment: 09/28/17 16:30 -labs/ua/betahcg/type and screen -Sonogram -Tylenol -Observe and reassess 09/28/17 18:01 -Sonogram: No intrauterine gestation. No evidence of retained products of conception. -Labs are non-significant except chronic anemia 8.6 from 9.3 with dark color stool/abdominal pain/nausea or vomiting -UA show no UTI -Beta hcg within normal limit -Urine hcg is negative -No active bleeding, no pain, feeling much better, spent 15 minutes asking her to continue her iron supplement which she said that causes her nausea/vomiting at home occasionally which I will give pepcid and zofran. I also ask her to see obgyn and hematology/oncology for her anemia and chronic vaginal bleeding ( on and off for 2 months now. Pt and the mother on the bedside which they verbally expressed understanding. -Discharge home with motrin, pepcid, zofran, stay hydrated, bed rest, no gym or exercise, continue your iron supplement at home, eat more red meat, follow up with your own pmd and obgyn/hematology and oncology, return to the ER for any new or worsening signs or symptoms. - Lab Interpretations Lab Results: 09/28/17 16:52 09/28/17 16:52 Lab Results 09/28/17 16:52: Beta HCG, Quant < 2.39 09/28/17 16:52: Sodium 142, Potassium 4.1, Chloride 110 H, Carbon Dioxide 22, Anion Gap 15, BUN 12, Creatinine 0.6 L, Est GFR ( Amer) > 60, Est GFR ( Non-Af Amer) > 60, Random Glucose 89, Calcium 8.5, Total Bilirubin < 0.1 L, AST 20, ALT 26, Alkaline Phosphatase 51, Total Protein 7.2, Albumin 3.8, Globulin 3.4, Albumin/Globulin Ratio 1.1 09/28/17 16:52: WBC 3.8 L, RBC 3.63, Hgb 8.6 L, Hct 28.1 L, MCV 77.4 L, MCH 23.7 L, MCHC 30.6 L, RDW 18.7 H, Plt Count 242, MPV 10.3, Gran % 50.0, Lymph % ( Auto) 37.8 H, [place] % (Auto) 8.3 H, Eos % (Auto) 3.6, Baso % (Auto) 0.3, Gran # 1.92, Lymph # (Auto) 1.5, [place] # (Auto) 0.3, Eos # (Auto) 0.1, Baso # (Auto) 0.01 09/28/17 16:39: Urine Color Red, Urine Appearance Cloudy, Urine pH 6.0, Ur Specific [place] >= 1.030, Urine Protein 100 H, Urine Glucose (UA) Negative, Urine Ketones Negative, Urine Blood Large H, Urine Nitrate Negative, Urine Bilirubin Negative, Urine Urobilinogen 0.2, Ur Leukocyte Esterase Negative, Urine RBC Tntc, Urine WBC 1 - 3, Ur Epithelial Cells 1 - 3, Urine Bacteria Few, Urine HCG, Qual Negative I have reviewed the lab results: Yes - RAD Interpretation Radiology Orders: 09/28/17 16:27 OB TRANSVAGINAL [US] Stat HISTORY: LMP unknown, ?, vaginal bleeding x 3 days. COMPARISON: None available. TECHNIQUE: Transvaginal FINDINGS: UTERUS: Measures 7.3 x 4.3 x 5.0 cm. Normal in size and appearance. No fibroid or other mass lesion seen. ENDOMETRIUM: Measures 7 mm in diameter. No endometrial fluid or soft tissue material. CERVIX: No cervical abnormality identified. RIGHT OVARY: Measures 2.6 x 3.0 x 3.2 cm. No solid mass. Normal flow. LEFT OVARY: Measures 3.5 x 1.6 x 3.3 cm. No solid mass. Normal flow. FREE FLUID: Small amount of fluid in cul-de-sac. OTHER FINDINGS: None. IMPRESSION: No intrauterine gestation. No evidence of retained products of conception. Roll Clamp Operator: Radiologist - Medication Orders Current Medication Orders: Discontinued Medications Acetaminophen (Tylenol 325mg Tab) 650 mg PO STAT STA Stop: 09/28/17 16:29 Last Admin: 09/28/17 17:14 Dose: 650 mg MAR Pain/Vitals Document 09/28/17 17:14 [email or web address] (Rec: 09/28/17 17:14 [email or web address] [id number]) Pain Reassessment Is This A Pain ReAssessment? No Sleep Is patient sleeping during reassessment? No Presence of Pain Presence of Pain Yes Pain Scale Used Pain Scale Used Numeric Location Upper or Lower Lower Pain Location Body Site Abdomen Description Constant Intensity 7 Scale Used Numeric Pain Behavior Facial Grimacing Aggravating Factors Changing Position Alleviating Factors Medication - PA / HEMODIALYSIS PATIENT CARE SPECIALIST / Resident Statement MD/DO has reviewed & agrees with the documentation as recorded. - Scribe Statement The provider has reviewed the documentation as recorded by the Justin Calderon Provider Scribe Attestation: All medical record entries made by the Scribe were at my direction and personally dictated by me. I have reviewed the chart and agree that the record accurately reflects my personal performance of the history, physical exam, medical decision making, and the department course for this patient. I have also personally directed, reviewed, and agree with the discharge instructions and disposition. Disposition/Present on Arrival - Present on Arrival Any Indicators Present on Arrival: No History of DVT/PE: No History of Uncontrolled Diabetes: No Urinary Catheter: No History of Decub. Ulcer: No History Surgical Site Infection Following: None - Disposition Have Diagnosis and Disposition been Completed?: Yes Diagnosis: Dysfunctional uterine bleeding, Chronic anemia Disposition: HOME/ ROUTINE Disposition Time: 16:35 Patient Plan: Discharge Patient Problems: Current Active Problems Problem Status Onset Dysfunctional uterine bleeding Acute Chronic anemia Acute Condition: IMPROVED Additional Instructions: -Discharge home with motrin, pepcid, zofran, stay hydrated, bed rest, no gym or exercise, continue your iron supplement at home, eat more red meat, follow up with your own pmd and obgyn/hematology and oncology, return to the ER for any new or worsening signs or symptoms. Prescriptions: Famotidine [Pepcid] 20 mg PO BID PRN #24 tab PRN Reason: Other Ibuprofen [Motrin] 600 mg PO QID PRN #28 tab PRN Reason: Other Ondansetron [Zofran] 4 mg PO TID PRN #15 tab PRN Reason: Other Referrals: [facility], [Primary Care Provider] - Follow up with primary Yasmeen Garay MD [Medical Doctor] - Follow up with primary Melissa Currie MD [Staff Provider] - Follow up with primary Stephanie Jarvis MD [Staff Provider] - Follow up with primary Forms: [employer] (Macedonian), WORK NOTE
[2017-09-28 17:03] LABS: HCG,QUALITATIVE URINE NEGATIVE (NEGATIVE)
[2017-09-28 17:03] LABS: BASO # 0.01 K/mm3 (0.0-2.0); BASO % 0.3 % (0.0-3.0); EOS # 0.1 (0.0-0.7); EOS % 3.6 % (1.5-5.0); GRAN # 1.92 (1.4-6.5); HEMOGLOBIN 8.6 g/dL (12.0-16.0); LYMPH # 1.5 (1.2-3.4); LYMPH % 37.8 % (22.0-35.0); MEAN CELL VOLUME 77.4 fl (80.0-105.0); MEAN CORPUSCULAR HEMOGLOBIN 23.7 pg (25.0-35.0); MEAN CORPUSCULAR HGB CONC 30.6 g/dl (31.0-37.0); MEAN PLATELET VOLUME 10.3 fl (7.0-11.0); MONO # 0.3 (0.1-0.6); MONO % 8.3 % (1.0-6.0); RBC 3.63 10^6/uL (3.5-6.1); RED CELL DISTRIBUTION WIDTH 18.7 % (11.5-14.5); WHITE BLOOD COUNT 3.8 10^3/ul (4.5-11.0)
[2017-09-28 17:05] LABS: URINE BILIRUBIN NEGATIVE (NEGATIVE); URINE BLOOD LARGE (NEGATIVE); URINE GLUCOSE (UA) NEGATIVE (NEGATIVE); URINE LEUKOCYTE ESTERASE NEGATIVE Leu/uL (NEGATIVE); URINE PROTEIN 100 mg/dL (<30 mg/dL); URINE UROBILINOGEN 0.2 E.U./dL (<1 E.U./dL)
[2017-09-28 17:06] LABS: URINE APPEARANCE CLOUDY (CLEAR); URINE COLOR RED (YELLOW)
[2017-09-28 17:07] LABS: URINE RBC TNTC /hpf (0-2)
[2017-09-28 17:08] LABS: URINE BACTERIA FEW (NEG)
[2017-09-28 17:12] VITALS: BP 120/66; PULSE 82
[2017-09-28 17:13] LABS: ALB/GLOB RATIO 1.1 (1.1-1.8); ALBUMIN 3.8 g/dL (3.0-4.8); ALT/SGPT 26 U/L (7-56); AST/SGOT 20 U/L (14-36); BLOOD UREA NITROGEN 12 mg/dL (7-21); CALCIUM 8.5 mg/dL (8.4-10.5); GFR AFRICAN-AMERICAN > 60; GFR NON-AFRICAN AMERICAN > 60
--- NOTE | 2017-09-28 17:36 | US ---
HISTORY: LMP unknown, ?, vaginal bleeding x 3 days. COMPARISON: None available. TECHNIQUE: Transvaginal FINDINGS: UTERUS: Measures 7.3 x 4.3 x 5.0 cm. Normal in size and appearance. No fibroid or other mass lesion seen. ENDOMETRIUM: Measures 7 mm in diameter. No endometrial fluid or soft tissue material. CERVIX: No cervical abnormality identified. RIGHT OVARY: Measures 2.6 x 3.0 x 3.2 cm. No solid mass. Normal flow. LEFT OVARY: Measures 3.5 x 1.6 x 3.3 cm. No solid mass. Normal flow. FREE FLUID: Small amount of fluid in cul-de-sac. OTHER FINDINGS: None. IMPRESSION: No intrauterine gestation. No evidence of retained products of conception.
[2017-09-28 18:06] VITALS: TEMP 98.2
[2017-09-28 18:21] VITALS: RESP 19; O2SAT 97
== END 2017-09-28 18:21 | disposition home or self-care (01) ==
LOC: ED 16:06
DX: N93.8 Other specified abnormal uterine and vaginal bleeding (principal); D64.9 Anemia, unspecified

== ENCOUNTER 2017-10-29 17:58 | Emergency (ER) | payer MEDICAID ==
[2017-10-29 17:58] VITALS: BMI 24.3
[2017-10-29 18:07] VITALS: BP 112/74; RESP 16
[2017-10-29] MEDS ORDERED: Oxycodone/Acetaminophen 5/325 mg Tab PO STA (18:33)
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
[2017-10-29] MEDS ORDERED: HYDROmorphone 1 mg/ml ISec IM ONE (20:16)
[2017-10-29] MEDS ORDERED: HYDROmorphone 0.5 mg/0.5 ml ISec IM ONE (20:30)
[2017-10-29 23:11] VITALS: PULSE 86; TEMP 98.6; O2SAT 98
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
[2017-10-30] MEDS ORDERED: Lidocaine 5% Patch TD ONE (18:34)
== END 2017-10-29 23:10 | disposition home or self-care (01) ==
LOC: ED 17:58
DX: S16.1XXA Strain of muscle, fascia and tendon at neck level, initial encounter (principal); Y04.0XXA Assault by unarmed brawl or fight, initial encounter
CPT/HCPCS: 71046; 72125; 73030; 96372; 99284; J1170; J1885

== ENCOUNTER 2018-01-19 04:34 | Emergency (ER) | payer MEDICAID ==
[2018-01-19 04:34] VITALS: BMI 24.3
[2018-01-19 04:43] VITALS: O2SAT 99
--- NOTE | 2018-01-19 05:05 | ED PDOC ---
Arrival/HPI - General Historian: Patient - History of Present Illness Time/Duration: Prior to Arrival, 1-3 hours Symptom Onset: Sudden Symptom Course: Worsening Quality: Burning Severity Level: Mild - General Chief Complaint: Female Genitourinary Time Seen by Provider: 01/19/18 04:48 - History of Present Illness Narrative History of Present Illness (Text): 01/19/18 04:58 27 year old female, past medical history of irregular menstrual cycle, presents to the emergency department with dysuria and increased frequency for the past 4 hours. Patient states for the past month she had increased frequency with urination. She recently got insurance and was in the process of scheduling an appointment with PIPE MAKER. Today she started having pain and burning with urination. She denies any discharge, odor, or hematuria. She has never had symptoms like this before. Nothing alleviates her symptoms. Patient is currently sexually active with one partner, they do not use any protection. Denies fever, chills, nausea, vomiting, shortness of breath, cough, abdominal pain, diarrhea, headache , dizziness. No PMD (Bunny Tomlin) Past Medical History - Provider Review Nursing Documentation Reviewed: Yes - Past History Past History: No Previous - Infectious Disease Hx of Infectious Diseases: None - Tetanus Immunization Tetanus Immunization: Unknown - Past Medical History Past Medical History: No Previous - Cardiac Hx Cardiac Disorders: No - Pulmonary Hx Respiratory Disorders: No - Neurological Hx Neurological Disorder: No - HEENT Hx HEENT Disorder: No - Renal Hx Renal Disorder: No - Endocrine/Metabolic Hx Endocrine Disorders: No - Hematological/Oncological Hx Blood Disorders: Yes Hx Anemia: Yes - Integumentary Hx Dermatological Disorder: No - Musculoskeletal/Rheumatological Hx Musculoskeletal Disorders: No Hx Falls: No - Gastrointestinal Hx Gastrointestinal Disorders: No - Genitourinary/Gynecological Hx Genitourinary Disorders: Yes Other/Comment: VAGINAL BLEEDING - Psychiatric Hx Psychophysiologic Disorder: No Hx Substance Use: No - Past Surgical History Past Surgical History: No Previous - Anesthesia Hx Anesthesia: No - Suicidal Assessment Feels Threatened In Home Enviroment: No Family/Social History - Physician Review Nursing Documentation Reviewed: Yes Family/Social History: No Known Family HX Smoking Status: Never Smoked Hx Alcohol Use: Yes Hx Substance Use: No Hx Substance Use Treatment: No Allergies/Home Meds Allergies/Adverse Reactions: Allergies No Known Allergies Allergy (Verified 01/19/18 05:08) Review of Systems - Review of Systems Constitutional: absent: Fevers Eyes: absent: Vision Changes ENT: absent: Hearing Changes Respiratory: absent: SOB, Cough Cardiovascular: absent: Chest Pain, Palpitations Gastrointestinal: absent: Abdominal Pain, Nausea, Vomiting Genitourinary Female: Dysuria, Frequency. absent: Hematuria, Urine Output Changes, Vaginal Bleeding, Vaginal Discharge Musculoskeletal: absent: Arthralgias Skin: absent: Rash Neurological: absent: Headache, Dizziness Physical Exam Vital Signs Reviewed: Yes Temperature: Afebrile Blood Pressure: Normal Pulse: Regular Respiratory Rate: Normal Appearance: Positive for: Well-Appearing, Non-Toxic, Comfortable Pain Distress: None Mental Status: Positive for: Alert and Oriented X 3 - Systems Exam Head: Present: Atraumatic, Normocephalic Pupils: Present: PERRL Extroacular Muscles: Present: EOMI Mouth: Present: Moist Mucous Membranes Respiratory/Chest: Present: Clear to Auscultation, Good Air Exchange. No: Respiratory Distress, Accessory Muscle Use Cardiovascular: Present: Regular Rate and Rhythm, Normal S1, S2. No: Murmurs Abdomen: No: Tenderness, Distention, Peritoneal Signs, Rebound, Guarding Psychiatric: Present: Alert, Oriented x 3, Normal Insight, Normal Concentration Vital Signs Temp Pulse Resp BP Pulse Ox 01/19/18 04:41 98.6 F 77 17 108/66 99 Medical Decision Making ED Course and Treatment: Impression: Pt seen and evaluated with electromedical equipment repairer. Aware and agree with HPI, clinical findings, plan, and management. Pt who presented for dysuria and urinary frequency. Plan: -- Urinalysis, chlamydia/GC RNA, urine cultures -- Reassess and disposition (Don Portillo) 01/19/18 05:10 27F presents to ED with increased urinary frequency and dysuria. UA Urine Culture G/C RNA TMA 01/19/18 05:50 UA positive for LE. Likely UTI. Patient prescribed keflex for 7 days. Patient to follow up with PMD and PIPE MAKER within 1 week or as scheduled. If symptoms worsen, please return to the ED. Patient verbalized understanding and agreement of treatment plan. Case reviewed and discussed with attending provider. (Bunny Tomlin) - Lab Interpretations Lab Results: Lab Results 01/19/18 05:00: Urine Color Yellow, Urine Appearance Sl cloudy, Urine pH 6.5, Ur Specific [place] 1.025, Urine Protein Trace H, Urine Glucose (UA) Negative, Urine Ketones Negative, Urine Blood Negative, Urine Nitrate Negative, Urine Bilirubin Negative, Urine Urobilinogen 1.0 H, Ur Leukocyte Esterase Small H, Urine RBC Pending, Urine WBC Pending Disposition/Present on Arrival - Present on Arrival Any Indicators Present on Arrival: No History of DVT/PE: No History of Uncontrolled Diabetes: No Urinary Catheter: No History of Decub. Ulcer: No History Surgical Site Infection Following: None - Disposition Have Diagnosis and Disposition been Completed?: Yes Disposition Time: 05:44 Patient Plan: Discharge - Disposition Diagnosis: UTI (urinary tract infection) Disposition: HOME/ ROUTINE Condition: GOOD Discharge Instructions (ExitCare): Urinary Tract Infection, Adult (DC) Additional Instructions: Please follow up with your primary medical doctor within 1 week. Please follow up with your road freight firer as scheduled. Upon discharge, please take the antibiotics prescribed and complete the entire course. If symptoms worsen, including but not limited to fevers or vaginal discharge, please return to the emergency room. Prescriptions: Cephalexin [cephalexin] 500 mg PO BID 7 Days #14 cap Referrals: Shawna Lance MD [Primary Care Provider] - Follow up with primary Forms: [employer] ([place]ian)
[2018-01-19 05:32] LABS: PH,URINE 6.5 (4.7-8.0); URINE BILIRUBIN NEGATIVE (NEGATIVE); URINE BLOOD NEGATIVE (NEGATIVE); URINE GLUCOSE (UA) NEGATIVE (NEGATIVE); URINE LEUKOCYTE ESTERASE SMALL Leu/uL (NEGATIVE); URINE PROTEIN TRACE mg/dL (<30 mg/dL)
[2018-01-19 05:42] LABS: URINE APPEARANCE SL CLOUDY (CLEAR); URINE COLOR YELLOW (YELLOW)
[2018-01-19 05:50] LABS: URINE AMORPHOUS SEDIMENT FEW; URINE BACTERIA MOD (NEG); URINE RBC 0 - 2 /hpf (0-2); URINE WBC TNTC /hpf (0-6)
[2018-01-19 06:02] VITALS: BP 110/68; PULSE 72; RESP 18; TEMP 98.5
== END 2018-01-19 05:50 | disposition home or self-care (01) ==
LOC: ED 04:34
DX: N39.0 Urinary tract infection, site not specified (principal)

== ENCOUNTER 2018-03-12 13:24 | Emergency (ER) | payer MEDICAID ==
[2018-03-12 13:24] VITALS: BMI 24.3
[2018-03-12] MEDS ORDERED: Sodium Chloride 0.9% 1,000 ML IV STA (13:46)
[2018-03-12] MEDS ORDERED: DiphenhydrAMINE 50 mg/ml Inj IVP STA (14:01)
--- NOTE | 2018-03-12 14:10 | ED PDOC ---
Arrival/HPI - General Time Seen by Provider: 03/12/18 13:34 Historian: Patient - History of Present Illness Narrative History of Present Illness (Text): 03/12/18 14:03 A 28 year old female, whose past medical history includes irregular menstrual cycle and bronchitis, presents to the emergency department complaining of headache since yesterday. Patient reports she has not been sleeping well recently, and has a toothache due to hole in wisdom tooth (mentions she has an appointment to have tooth extracted). States she believes the lack of sleep and toothache may both be causing her headaches. Patient took 3 of hydrocodone (prescribed to her for tooth pain and last taken approximately 40 minutes - 1 hour ago), but had no relief and began experiencing chest pain. Later on, patient took 2 of Ibuprofen, which relieved the headache, however chest pain remains. Patient notes also experiencing nausea, shortness of breath(mentions has this most of the time), dizziness usually when ambulating, however denies any abdominal pain, vomiting, sensitivity to light/sound, or any other complaints at this time. Denies any history of being diagnosed with asthma. Denies any other medication intake. Denies any history of smoking/EtOH/substance abuse. PMD: [facility]es [facility]. Past Medical History - Provider Review Nursing Documentation Reviewed: Yes - Past History Past History: No Previous - Infectious Disease Hx of Infectious Diseases: None - Tetanus Immunization Tetanus Immunization: Unknown - Past Medical History Past Medical History: No Previous - Cardiac Hx Cardiac Disorders: No - Pulmonary Hx Respiratory Disorders: No - Neurological Hx Neurological Disorder: No - HEENT Hx HEENT Disorder: No - Renal Hx Renal Disorder: No - Endocrine/Metabolic Hx Endocrine Disorders: No - Hematological/Oncological Hx Blood Disorders: Yes Hx Anemia: Yes - Integumentary Hx Dermatological Disorder: No - Musculoskeletal/Rheumatological Hx Musculoskeletal Disorders: No Hx Falls: No - Gastrointestinal Hx Gastrointestinal Disorders: No - Genitourinary/Gynecological Hx Genitourinary Disorders: Yes Other/Comment: VAGINAL BLEEDING - Psychiatric Hx Psychophysiologic Disorder: No Hx Substance Use: No - Past Surgical History Past Surgical History: No Previous - Anesthesia Hx Anesthesia: No - Suicidal Assessment Feels Threatened In Home Enviroment: No Family/Social History - Physician Review Nursing Documentation Reviewed: Yes Family/Social History: No Known Family HX Smoking Status: Never Smoked Hx Alcohol Use: Yes Hx Substance Use: No Hx Substance Use Treatment: No Allergies/Home Meds Allergies/Adverse Reactions: Allergies No Known Allergies Allergy (Verified 03/12/18 14:04) Review of Systems - Physician Review All systems were reviewed & negative as marked: Yes - Review of Systems Constitutional: absent: Fevers, Night Sweats Eyes: absent: Vision Changes, Photophobia Respiratory: SOB Cardiovascular: Chest Pain Gastrointestinal: Nausea. absent: Abdominal Pain, Vomiting Neurological: Headache, Dizziness Physical Exam Vital Signs Reviewed: Yes Vital Signs Temp Pulse Resp BP Pulse Ox 03/12/18 13:27 98.0 F 62 18 114/72 98 Temperature: Afebrile Blood Pressure: Normal Pulse: Regular Respiratory Rate: Normal Appearance: Positive for: Well-Appearing, Non-Toxic, Comfortable Pain Distress: None Mental Status: Positive for: Alert and Oriented X 3 - Systems Exam Head: Present: Atraumatic, Normocephalic Pupils: Present: PERRL Extroacular Muscles: Present: EOMI Conjunctiva: Present: Normal Mouth: Present: Moist Mucous Membranes Neck: Present: Normal Range of Motion Respiratory/Chest: Present: Clear to Auscultation, Good Air Exchange, Tender to Palpation (no reproducible tenderness/pain to palpation to anterior chest wall). No: Respiratory Distress, Accessory Muscle Use, Tachypneic Cardiovascular: Present: Regular Rate and Rhythm, Normal S1, S2. No: Murmurs, Tachycardic Abdomen: No: Tenderness, Distention, Peritoneal Signs Back: Present: Normal Inspection Upper Extremity: Present: Normal Inspection. No: Cyanosis, Edema Lower Extremity: Present: Normal Inspection. No: Edema Neurological: Present: GCS=15, CN II-XII Intact, Speech Normal Skin: Present: Warm, Dry, Normal Color. No: Rashes Psychiatric: Present: Alert, Oriented x 3, Normal Insight, Normal Concentration Medical Decision Making ED Course and Treatment: 03/12/18 14:07 Impression: 28 year old female with headache and chest pain. Physical exam shows patient is not tachycardic/tachypneic; has no reproducible tenderness to palpation or pain to anterior chest wall. Plan: -- EKG -- Chest X-ray -- Urinalysis -- POC Urine Test -- Benadryl -- Toradol -- Reglan -- IV Fluids -- Reassess and disposition Prior Visits: Notes and results from previous visits were reviewed. Patient was last seen in the emergency department on 01/19/2018 for dysuria and increased frequency. Patient was discharged home. Progress Notes: - RAD Interpretation Narrative RAD Interpretations (Text): 03/12/18 16:03 Chest X-ray IMPRESSION: No active disease. Dictator: Ovi Gaffney MD Radiology Orders: 03/12/18 14:01 CHEST PORTABLE [RAD] Stat - Medication Orders Current Medication Orders: Sodium Chloride (Sodium Chloride 0.9%) 1,000 mls @ 999 mls/hr IV .Q1H1M STA Stop: 03/12/18 14:46 Discontinued Medications Ketorolac Tromethamine (Toradol) 30 mg IVP STAT STA Stop: 03/12/18 13:47 Metoclopramide HCl (Reglan) 10 mg IVP STAT STA Stop: 03/12/18 13:47 - Scribe Statement The provider has reviewed the documentation as recorded by the Scribe Thierry Gill Provider Scribe Attestation: All medical record entries made by the Scribe were at my direction and personally dictated by me. I have reviewed the chart and agree that the record accurately reflects my personal performance of the history, physical exam, medical decision making, and the department course for this patient. I have also personally directed, reviewed, and agree with the discharge instructions and disposition. Disposition/Present on Arrival - Present on Arrival Any Indicators Present on Arrival: No History of DVT/PE: No History of Uncontrolled Diabetes: No Urinary Catheter: No History Surgical Site Infection Following: None - Disposition Have Diagnosis and Disposition been Completed?: Yes Diagnosis: Musculoskeletal chest pain, Headache Disposition: HOME/ ROUTINE Disposition Time: 16:33 Patient Plan: Discharge Patient Problems: Current Active Problems Problem Status Onset Headache Acute Musculoskeletal chest pain Acute Condition: IMPROVED Discharge Instructions (ExitCare): Headache, Adult (DC), Chest Pain (ED) Print Language: PORTUGUESE Additional Instructions: All medical record entries made by the Scribe were at my direction and personally dictated by me. I have reviewed the chart and agree that the record accurately reflects my personal performance of the history, physical exam, medical decision making, and the department course for this patient. I have also personally directed, reviewed, and agree with the discharge instructions and disposition. Prescriptions: Metoclopramide HCl [Reglan] 10 mg PO PRN PRN #6 tablet PRN Reason: Pain, Moderate (4-7) Referrals: [facility] [place] [Outside] - Follow up with primary Deyanira Zheng MD [Medical Doctor] - Follow up with primary Forms: WORK NOTE, [employer] [facility] (Citizen [place])
[2018-03-12 15:55] LABS: URINE BILIRUBIN NEGATIVE (NEGATIVE); URINE BLOOD NEGATIVE (NEGATIVE); URINE GLUCOSE (UA) NEGATIVE (NEGATIVE); URINE LEUKOCYTE ESTERASE NEGATIVE Leu/uL (NEGATIVE); URINE PROTEIN 30 mg/dL (<30 mg/dL); URINE UROBILINOGEN 0.2 E.U./dL (<1 E.U./dL)
[2018-03-12 16:00] LABS: URINE APPEARANCE SL CLOUDY (CLEAR); URINE COLOR YELLOW (YELLOW)
--- NOTE | 2018-03-12 16:06 | RAD ---
Date of service: 03/12/2018 HISTORY: sob chest pain COMPARISON: 10/29/2017 FINDINGS: LUNGS: No active pulmonary disease. PLEURA: No significant pleural effusion identified, no pneumothorax apparent. CARDIOVASCULAR: No aortic atherosclerotic calcification present. Normal cardiac size. No pulmonary vascular congestion. OSSEOUS STRUCTURES: No significant abnormalities. VISUALIZED UPPER ABDOMEN: Normal. OTHER FINDINGS: None. IMPRESSION: No active disease.
--- NOTE | 2018-03-12 16:18 | CARD ---
APPROVED REPORT Date of service: 03/12/2018 EKG Measurement Heart [id number] <Conclusion> Normal sinus rhythm Nonspecific T wave abnormality Abnormal ECG
[2018-03-12 16:50] LABS: URINE BACTERIA MOD (NEG)
[2018-03-12 17:15] VITALS: BP 142/84; PULSE 66; RESP 16; TEMP 98.2; O2SAT 99
== END 2018-03-12 17:25 | disposition home or self-care (01) ==
LOC: ED 13:24
DX: R51 Headache (principal); R07.89 Other chest pain
CPT/HCPCS: 71045; 81001; 93005; 96361; 96374; 96375; 99284; J1200; J1885; J2765; J7030

== ENCOUNTER 2018-08-22 15:00 | Emergency (ER) | payer MEDICAID ==
[2018-08-22 15:34] VITALS: BMI 26.6
[2018-08-22 15:35] VITALS: RESP 18
[2018-08-22 17:08] LABS: BASO # 0.01 K/mm3 (0.0-2.0); BASO % 0.3 % (0.0-3.0); EOS # 0.1 (0.0-0.7); EOS % 3.1 % (1.5-5.0); LYMPH # 1.8 (1.2-3.4); MEAN CELL VOLUME 84.2 fl (80.0-105.0); MEAN CORPUSCULAR HEMOGLOBIN 26.9 pg (25.0-35.0); MEAN CORPUSCULAR HGB CONC 31.9 g/dl (31.0-37.0); MEAN PLATELET VOLUME 11.7 fl (7.0-11.0); MONO # 0.3 (0.1-0.6); MONO % 8.9 % (1.0-6.0); RBC 3.35 10^6/uL (3.5-6.1); WHITE BLOOD COUNT 3.8 10^3/uL (4.5-11.0)
[2018-08-22 17:16] LABS: ALB/GLOB RATIO 1.1 (1.1-1.8); ALT/SGPT 21 U/L (7-56); AST/SGOT 30 U/L (14-36); BLOOD UREA NITROGEN 13 mg/dL (7-21); CALCIUM 9.3 mg/dL (8.4-10.5); GFR NON-AFRICAN AMERICAN > 60; INR 1.17; PARTIAL THROMBOPLASTIN TIME 30.4 Seconds (26.9-38.3)
[2018-08-22 17:54] LABS: URINE APPEARANCE CLEAR (CLEAR); URINE BILIRUBIN NEGATIVE (NEGATIVE); URINE BLOOD TRACE-INTACT (NEGATIVE); URINE COLOR YELLOW (YELLOW); URINE GLUCOSE (UA) NEGATIVE (NEGATIVE); URINE LEUKOCYTE ESTERASE NEGATIVE Leu/uL (NEGATIVE); URINE PROTEIN NEGATIVE mg/dL (<30 mg/dL); URINE UROBILINOGEN 0.2 E.U./dL (<1 E.U./dL)
[2018-08-22 17:58] LABS: URINE EPITHELIAL CELLS 0 - 2 /hpf (0-5)
--- NOTE | 2018-08-22 18:55 | ED PDOC ---
Arrival/HPI - General Chief Complaint: Female Genitourinary Time Seen by Provider: 08/22/18 15:27 Historian: Patient - History of Present Illness Narrative History of Present Illness (Text): 08/22/18 18:13 28-year-old female with a history of anemia and irregular periods presents today with a one-month history of vaginal bleeding. Patient states initially it started out as spotting but over time she has been having intermittent heavy bleeding. Patient states she has been feeling fatigued. Patient states she has had a transfusion in the past for low blood count. Patient denies chest pain or shortness of breath at present time. Patient denies dizziness or weakness. She is complaining of some lower abdominal cramping. Patient denies a history of fibroids. Patient denies . Patient denies urinary symptoms. No other complaints Past Medical History - Provider Review Nursing Documentation Reviewed: Yes - Travel History Have you recently traveled outside [place] w/in the past 3 mons?: No - Past History Past History: No Previous - Infectious Disease Hx of Infectious Diseases: None - Tetanus Immunization Tetanus Immunization: Unknown - Past Medical History Past Medical History: No Previous - Cardiac Hx Cardiac Disorders: No - Pulmonary Hx Respiratory Disorders: No - Neurological Hx Neurological Disorder: No - HEENT Hx HEENT Disorder: No - Renal Hx Renal Disorder: No - Endocrine/Metabolic Hx Endocrine Disorders: No - Hematological/Oncological Hx Blood Disorders: Yes Hx Anemia: Yes Hx Blood Transfusions: Yes - Integumentary Hx Dermatological Disorder: No - Musculoskeletal/Rheumatological Hx Musculoskeletal Disorders: No Hx Falls: No - Gastrointestinal Hx Gastrointestinal Disorders: No - Genitourinary/Gynecological Hx Genitourinary Disorders: Yes Other/Comment: VAGINAL BLEEDING, PCOS - Psychiatric Hx Psychophysiologic Disorder: No Hx Substance Use: No - Past Surgical History Past Surgical History: No Previous - Anesthesia Hx Anesthesia: No - Suicidal Assessment Feels Threatened In Home Enviroment: No Family/Social History - Physician Review Nursing Documentation Reviewed: Yes Family/Social History: Unknown Family HX Smoking Status: Never Smoked Hx Alcohol Use: Yes Hx Substance Use: No Hx Substance Use Treatment: No Allergies/Home Meds Allergies/Adverse Reactions: Allergies No Known Allergies Allergy (Verified 08/22/18 15:34) Review of Systems - Review of Systems Constitutional: Fatigue. absent: Fevers Respiratory: absent: SOB, Cough Cardiovascular: absent: Chest Pain, Palpitations Gastrointestinal: Abdominal Pain. absent: Constipation, Diarrhea, Nausea, Vomiting Genitourinary Female: Vaginal Bleeding. absent: Dysuria, Frequency, Hematuria Musculoskeletal: absent: Arthralgias, Back Pain, Neck Pain Skin: absent: Rash, Pruritis Neurological: absent: Headache, Dizziness Psychiatric: absent: Anxiety, Depression, Suicidal Ideation Physical Exam Vital Signs Reviewed: Yes Vital Signs Temp Pulse Resp BP Pulse Ox 08/22/18 15:34 97.9 F 80 18 110/68 99 Temperature: Afebrile Blood Pressure: Normal Pulse: Regular Respiratory Rate: Normal Appearance: Positive for: Well-Appearing, Non-Toxic, Comfortable Pain Distress: None Mental Status: Positive for: Alert and Oriented X 3 - Systems Exam Head: Present: Atraumatic Mouth: Present: Moist Mucous Membranes Neck: Present: Normal Range of Motion Respiratory/Chest: Present: Clear to Auscultation, Good Air Exchange. No: Respiratory Distress, Accessory Muscle Use Cardiovascular: Present: Regular Rate and Rhythm, Normal S1, S2. No: Murmurs Abdomen: Present: Tenderness (minimal suprapubic tenderness). No: Distention, Rebound, Guarding Genitourinary/Pelvic Exam: Present: Normal External Genitalia, Vaginal Bleeding (minimal vaginal bleeding noted; small clot noted. ), Other (chaparoned by Ameena WONG). No: Vaginal Discharge, Vaginal Lesions, Adenexal Tenderness, Adenexal Mass, Cervical Motion Tendernes, Cervical os Closed, Odor Back: Present: Normal Inspection. No: CVA Tenderness, Midline Tenderness, Paraspinal Tenderness Upper Extremity: Present: Normal ROM Lower Extremity: Present: Normal ROM Neurological: Present: GCS=15, Speech Normal Skin: Present: Warm, Dry, Normal Color. No: Rashes Psychiatric: Present: Alert, Oriented x 3 Medical Decision Making ED Course and Treatment: 08/22/18 18:14 Patient is nontoxic well appearing in no distress. vital signs are stable. pt with 1 month history of vaginal bleeding. CBC: hgb; 9.0 CMP: wnl Beta hCG: negative TYPE AND SCREEN: Urinalysis: + trace blood Ultrasound, transvaginal: FINDINGS: The uterus measures 8.1 x 4.3 x 3.6 centimeters. The endometrium measures 4 millimeters. There is no free fluid the cul-de-sac. The right ovary measures 3.5 x 3.3 centimeters. Left arm measures 3.9 x 1.9 centimeters. Bilateral ovarian follicles are observed. IMPRESSION: Bilateral ovarian follicles. Discussed all the results the patient. advised f/u with the chemical dependency nurse within the next 2 days. advised immediate return if symptoms worsen,persist or if new symptoms develop. Advised the patient she must follow-up with a SECURITY GUARD DISPATCHER low as soon as possible. Advised the patient that if she starts to feel weak or fatigued or develops continued heavy bleeding that she return to the emergency room for repeat blood test. I advised the patient that her hemoglobin level is but not as low as she has had in the past. And at this point no blood transfusion is required. Patient was advised that this number should be monitored closely especially if she continues to have bleeding. I discussed ultrasound results with the patient in depth. Patient verbalizes understanding of discharge instructions and need for immediate followup. All aspects of this case were discussed the attending of record. Impression: Vaginal bleeding, anemia Tylenol every 4 hours as needed for pain Increase fluids Followup with the derrick helper within the next 2 days Return immediately if symptoms worsen persist or if new symptoms develop: High fevers, heavy bleeding, severe abdominal pain, vomiting, diarrhea, dizziness or weakness or any other concerning symptoms develop. Reassessment Condition: Re-examined, Improved - Lab Interpretations Lab Results: PT 13.0 SECONDS (9.4-12.5) H 08/22/18 16:20 INR 1.17 08/22/18 16:20 APTT 30.4 Seconds (26.9-38.3) 08/22/18 16:20 Total Bilirubin 0.4 mg/dL (0.2-1.3) 08/22/18 16:20 AST 30 U/L (14-36) 08/22/18 16:20 ALT 21 U/L (7-56) 08/22/18 16:20 Alkaline Phosphatase 89 U/L (38-126) 08/22/18 16:20 Total Protein 7.8 g/dL (5.8-8.3) 08/22/18 16:20 Albumin 4.0 g/dL (3.0-4.8) 08/22/18 16:20 Globulin 3.8 gm/dL 08/22/18 16:20 Albumin/Globulin Ratio 1.1 (1.1-1.8) 08/22/18 16:20 Urine Color Yellow (YELLOW) 08/22/18 17:30 Urine Appearance Clear (CLEAR) 08/22/18 17:30 Urine pH 8.0 (4.7-8.0) 08/22/18 17:30 Ur Specific [place] 1.020 (1.005-1.035) 08/22/18 17:30 Urine Protein Negative mg/dL (<30 mg/dL) 08/22/18 17:30 Urine Glucose (UA) Negative mg/dL (NEGATIVE) 08/22/18 17:30 Urine Ketones Negative mg/dL (NEGATIVE) 08/22/18 17:30 Urine Blood Trace-intact (NEGATIVE) H 08/22/18 17:30 Urine Nitrate Negative (NEGATIVE) 08/22/18 17:30 Urine Bilirubin Negative (NEGATIVE) 08/22/18 17:30 Urine Urobilinogen 0.2 E.U./dL (<1 E.U./dL) 08/22/18 17:30 Ur Leukocyte Esterase Negative Fabio/uL (NEGATIVE) 08/22/18 17:30 Urine RBC 2 - 5 /hpf (0-2) H 08/22/18 17:30 Urine WBC None /hpf (0-6) 08/22/18 17:30 Ur Epithelial Cells 0 - 2 /hpf (0-5) 08/22/18 17:30 Beta HCG, Quant < 2.39 mIU/mL (0-6.15) 08/22/18 16:20 - RAD Interpretation Radiology Orders: 08/22/18 16:37 TRANSVAGINAL [US] Stat Disposition/Present on Arrival - Present on Arrival Any Indicators Present on Arrival: No History of DVT/PE: No History of Uncontrolled Diabetes: No Urinary Catheter: No History of Decub. Ulcer: No History Surgical Site Infection Following: None - Disposition Have Diagnosis and Disposition been Completed?: Yes Diagnosis: Vaginal bleeding, abnormal, Anemia Disposition: HOME/ ROUTINE Disposition Time: 19:00 Patient Plan: Discharge Condition: GOOD Discharge Instructions (ExitCare): Dysfunctional Uterine Bleeding (ED) Additional Instructions: Tylenol every 4 hours as needed for pain Increase fluids Followup with the derrick helper within the next 2 days Return immediately if symptoms worsen persist or if new symptoms develop: High fevers, heavy bleeding, severe abdominal pain, vomiting, diarrhea, dizziness or weakness or any other concerning symptoms develop. Referrals: Shubham Osuna MD [Staff Provider] - Follow up with primary Yasmene Garay MD [Medical Doctor] - Follow up with primary Erich Davila DO [Staff Provider] - Follow up with primary [facility] [Outside] - [facility] with [facility] [Outside] - [facility] - Follow up with primary Forms: [employer] (Kyrgyz), WORK NOTE
[2018-08-22 20:34] VITALS: BP 112/70; PULSE 78; TEMP 98.1; O2SAT 100
--- NOTE | 2018-08-23 14:57 | US ---
Date of service: 08/22/2018 PROCEDURE: HISTORY: pain COMPARISON: TECHNIQUE: FINDINGS: The uterus measures 8.1 x 4.3 x 3.6 centimeters. The endometrium measures 4 millimeters. There is no free fluid the cul-de-sac. The right ovary measures 3.5 x 3.3 centimeters. Left arm measures 3.9 x 1.9 centimeters. Bilateral ovarian follicles are observed. IMPRESSION: Bilateral ovarian follicles.
== END 2018-08-22 19:49 | disposition home or self-care (01) ==
LOC: ED 15:00
DX: N93.9 Abnormal uterine and vaginal bleeding, unspecified (principal); D64.9 Anemia, unspecified

== ENCOUNTER 2018-09-23 00:15 | Observation (INO) | payer MEDICAID ==
--- NOTE | 2018-09-23 00:55 | ED PDOC ---
Arrival/HPI - General Chief Complaint: Shortness Of Breath Time Seen by Provider: 09/23/18 00:50 Historian: Patient - History of Present Illness Narrative History of Present Illness (Text): 09/23/18 00:52 28 y/o female, pmh including chronic anemia due to PCOS with dysfunctional uterine bleeding, nkda, c/o fatigue/tired/chest pain and shortness of breath x 3 weeks. Pt. stated that she has no fever or chills, has heavy period and just finished her period last week, no abdominal or night sweat, no dizziness, no change in vision, no extremity pain or swelling, no pleuritic pain, no other medical or psychological complaints. Past Medical History - Provider Review Nursing Documentation Reviewed: Yes - Past History Past History: No Previous - Infectious Disease Hx of Infectious Diseases: None - Tetanus Immunization Tetanus Immunization: Unknown - Past Medical History Past Medical History: No Previous - Cardiac Hx Cardiac Disorders: No - Pulmonary Hx Respiratory Disorders: No - Neurological Hx Neurological Disorder: No - HEENT Hx HEENT Disorder: No - Renal Hx Renal Disorder: No - Endocrine/Metabolic Hx Endocrine Disorders: No - Hematological/Oncological Hx Blood Disorders: Yes Hx Anemia: Yes Hx Blood Transfusions: Yes - Integumentary Hx Dermatological Disorder: No - Musculoskeletal/Rheumatological Hx Musculoskeletal Disorders: No Hx Falls: No - Gastrointestinal Hx Gastrointestinal Disorders: No - Genitourinary/Gynecological Hx Genitourinary Disorders: Yes Other/Comment: VAGINAL BLEEDING, PCOS - Psychiatric Hx Psychophysiologic Disorder: No Hx Substance Use: No - Past Surgical History Past Surgical History: No Previous - Anesthesia Hx Anesthesia: No - Suicidal Assessment Feels Threatened In Home Enviroment: No Family/Social History - Physician Review Nursing Documentation Reviewed: Yes Family/Social History: Unknown Family HX Smoking Status: Never Smoked Hx Alcohol Use: Yes Hx Substance Use: No Hx Substance Use Treatment: No Allergies/Home Meds Allergies/Adverse Reactions: Allergies No Known Allergies Allergy (Verified 09/23/18 00:41) Home Medications: Home Meds Medication Instructions Recorded Confirmed No Known Home Med 09/23/18 09/23/18 Review of Systems - Review of Systems Constitutional: Fatigue. absent: Fevers Eyes: absent: Vision Changes ENT: absent: Hearing Changes, Sore Throat, Rhinorrhea Respiratory: SOB. absent: Cough, Sputum, Wheezing Cardiovascular: Chest Pain Gastrointestinal: absent: Abdominal Pain, Diarrhea, Nausea, Vomiting Skin: absent: Rash, Pruritis Neurological: absent: Headache, Dizziness Hemo/Lymphatic: absent: Adenopathy Psychiatric: absent: Anxiety, Depression, Suicidal Ideation Physical Exam - Systems Exam Head: Present: Atraumatic, Normocephalic Pupils: Present: PERRL Extroacular Muscles: Present: EOMI Conjunctiva: Present: Normal Ears: Present: NORMAL TM, Normal Canal. No: Erythema Mouth: Present: Moist Mucous Membranes Nose (External): Present: Atraumatic. No: Abrasion, Contusion, Laceration, Lesions, Other Nose (Internal): Present: Normal Inspection, No Active Bleeding. No: Rhinorrhea, Septal Deviation, Septal Hematoma, Epistaxis Neck: Present: Normal Range of Motion Respiratory/Chest: Present: Clear to Auscultation, Good Air Exchange. No: Respiratory Distress, Accessory Muscle Use, Wheezes, Decreased Breath Sounds, Rales, Retracting, Rhonchi, Tachypneic, Tender to Palpation, Other Cardiovascular: Present: Regular Rate and Rhythm, Normal S1, S2, Other (no edema). No: Murmurs Abdomen: No: Tenderness, Distention, Peritoneal Signs Back: Present: Normal Inspection Upper Extremity: Present: Normal Inspection. No: Cyanosis, Edema Lower Extremity: Present: Normal Inspection. No: Edema Neurological: Present: GCS=15, CN II-XII Intact, Speech Normal Skin: Present: Warm, Dry, Normal Color. No: Rashes Psychiatric: Present: Alert, Oriented x 3, Normal Insight, Normal Concentration Medical Decision Making ED Course and Treatment: 09/23/18 00:54 Differential: anemia vs. pneumonia vs. cardiac arrythmia vs. UTI -labs -ekg -cxr -observe and reassess 09/23/18 01:45 -Urine hcg is negative -EKG: NSR @ 85 BPM, no ST elevation or depression, T wave inversion lead III. -Chest xray -Labs show no acute findings except hgb 6.2 with hct 21 (2 units PRBC ordered) -Trop is negative after 24 hours -BNP is negative -Pt. refused guaiac, stated that she has no GI symptoms, no nausea/vomiting/diarrhea/black color stool. -Pt. agreed for blood transfusion 09/23/18 02:00 -I spoke to the medical billing and coding instructor and Dr. Billy, discussed about the case and 2 units of PRBC, they agreed and will continue the medical care. -Anemia profile ordered prior to the transfusion as well. Benadryl and tylenol ordered and explained to the RN as needed during the blood transfusion. - Critical Care Critical Care Minutes: 30 minutes Critical Care Time: Unstable Narrative Critical Care (Text): 09/23/18 01:59 anemia/chest pain, symptomatic, need blood transfusion - RAD Interpretation Radiology Orders: 09/23/18 00:50 CHEST PORTABLE [RAD] Stat - PA / CORE WINDER MACHINE OPERATOR / Resident Statement MD/DO has reviewed & agrees with the documentation as recorded. Disposition/Present on Arrival - Present on Arrival Any Indicators Present on Arrival: No History of DVT/PE: No History of Uncontrolled Diabetes: No Urinary Catheter: No History of Decub. Ulcer: No History Surgical Site Infection Following: None - Disposition Have Diagnosis and Disposition been Completed?: Yes Diagnosis: Symptomatic anemia, Chest pain Disposition: HOSPITALIZED Disposition Time: 01:43 Patient Plan: Admission, Observation Condition: STABLE Discharge Instructions (ExitCare): Chest Pain (ED) Forms: [employer] (Citizen Of [place])
[2018-09-23 01:14] LABS: BASO # 0.01 K/mm3 (0.0-2.0); BASO % 0.2 % (0.0-3.0); EOS # 0.2 (0.0-0.7); EOS % 3.2 % (1.5-5.0); LYMPH # 2.1 (1.2-3.4); LYMPH % 34.9 % (22.0-35.0); MEAN CELL VOLUME 75.8 fl (80.0-105.0); MEAN CORPUSCULAR HEMOGLOBIN 22.4 pg (25.0-35.0); MEAN CORPUSCULAR HGB CONC 29.5 g/dl (31.0-37.0); MEAN PLATELET VOLUME 10.9 fl (7.0-11.0); MONO # 0.4 (0.1-0.6); MONO % 7.5 % (1.0-6.0); RBC 2.77 10^6/uL (3.5-6.1); RED CELL DISTRIBUTION WIDTH 17.3 % (11.5-14.5); WHITE BLOOD COUNT 5.9 10^3/uL (4.5-11.0)
[2018-09-23 01:24] LABS: ALB/GLOB RATIO 1.1 (1.1-1.8); ALBUMIN 3.5 g/dL (3.0-4.8); ALT/SGPT 20 U/L (7-56); AST/SGOT 20 U/L (14-36); BLOOD UREA NITROGEN 15 mg/dL (7-21); CALCIUM 8.2 mg/dL (8.4-10.5); GFR NON-AFRICAN AMERICAN > 60
[2018-09-23 01:30] LABS: HEMOGLOBIN 6.2 g/dL (12.0-16.0)
[2018-09-23 01:36] LABS: B-TYPE NATRIURETIC PEPTIDE 35.5 pg/mL (0-450); TROPONIN I < 0.01 ng/mL
--- NOTE | 2018-09-23 02:09 | CP.PCM.HP ---
<Meenakshi Tomlin - Last Filed: 09/23/18 05:38> History of Present Illness - History of Present Illness History of Present Illness: HISTORY & PHYSICAL NOTE FOR HOSPITALIST SERVICE MEENAKSHI TOMLIN 28 y/o F with PMH abnormal uterine bleeding, menorrhagia, PCOS presented to ED with complaints excessive fatigue, shortness of breath with exertion and 7/10 substernal, pressure-like, non-radiating chest pain. She reports excessive fatigue and shortness of breath for several months that has recently become worse over the past 2 days. She states she become short of breath while walking and experiences concurrent chest pain. She reports chest pain began 2 days ago as well. Pt reports she has had prolonged periods of irregular and excessive menstrual periods despite taking control prescribed by her pumping plant operator. She reports about 5 days ago, when she was on her final week of her Norgestimate/ethinyl estradiol medicacation when she experienced uncontrolled ex cessive vaginal bleeding requiring multiple packs of tampons. She was in pain and used 600mg ibuprofen twice daily for about 1 week until her arrival to ED. She reports her LMP was 3 days prior. She also endorses increased urinary frequency without dysuria, hematuria, pyuria for several months. She has last followed up with her MACHINE EGG WASHER in 08/2018. She denies fevers, chills, headache, dizziness, palpitations, numbness, tingling, palpitations, nausea, vomiting, constipation, diarrhea, dysuria, hematuria, hematochezia. OBHx: , boy delivered @ 37 weeks (2015 -@[facility]), no complications. GynHx: Menarche 15 y/o, AUB since 2014 after of son. LMP 08/21/28. Irregular menstrual cycles, ranges from 2-4 months apart, last period she has b een bleeding daily for about 1 month. Excessive bleeding last week (last week of monthly control) requiring several packs of pads. PMH: PCOS, AUB, menorrhagia All: NKDA PSH: Denies SH: Never smoke, drank, no illicit drug use. Hosp: denies recent FH: Mother: alive: HTN. Father: doesn't know Meds: Norgestimate/ethinyl estradiol, ibuprofen 600mg (for the past week) PMD: [facility]. No PMD MACHINE EGG WASHER: Dr. Jennifer Baker Pharm: Ashkan trevino Present on Admission - Present on Admission Any Indicators Present on Admission: No Review of Systems - Review of Systems Review of Systems: per HPI Past Patient History - Infectious Disease Hx of Infectious Diseases: None - Tetanus Immunizations Tetanus Immunization: Unknown - Past Social History Smoking Status: Never Smoked - CARDIAC Hx Cardiac Disorders: No - PULMONARY Hx Respiratory Disorders: No - NEUROLOGICAL Hx Neurological Disorder: No - HEENT Hx HEENT Problems: No - RENAL Hx Chronic Kidney Disease: No - ENDOCRINE/METABOLIC Hx Endocrine Disorders: No - HEMATOLOGICAL/ONCOLOGICAL Hx Blood Disorders: Yes Hx Anemia: Yes Hx Blood Transfusions: Yes - INTEGUMENTARY Hx Dermatological Problems: No - MUSCULOSKELETAL/RHEUMATOLOGICAL Hx Musculoskeletal Disorders: No Hx Falls: No - GASTROINTESTINAL Hx Gastrointestinal Disorders: No - GENITOURINARY/GYNECOLOGICAL Hx Genitourinary Disorders: Yes Other/Comment: VAGINAL BLEEDING, PCOS - PSYCHIATRIC Hx Psychophysiologic Disorder: No Hx Substance Use: No - SURGICAL HISTORY Hx Surgeries: No - ANESTHESIA Hx Anesthesia: No Meds Allergies/Adverse Reactions: Allergies Allergy/AdvReac Type Severity Reaction Status Date / Time No Known Allergies Allergy Verified 09/23/18 00:41 Physical Exam - Constitutional Appears: Well, Non-toxic, No Acute Distress - Head Exam Head Exam: NORMAL INSPECTION, NORMOCEPHALIC - Eye Exam Eye Exam: EOMI, Normal appearance - ENT Exam ENT Exam: Mucous Membranes Dry, Normal Exam - Neck Exam Neck exam: Positive for: Normal Inspection - Respiratory Exam Respiratory Exam: Clear to Auscultation Bilateral, NORMAL BREATHING PATTERN - Cardiovascular Exam Cardiovascular Exam: REGULAR RHYTHM, +S1, +S2 - GI/Abdominal Exam GI & Abdominal Exam: Soft. absent: Tenderness - Rectal Exam Additional comments: pt deferred - Extremities Exam Extremities exam: Positive for: normal inspection. Negative for: calf tenderness - Back Exam Back exam: NORMAL INSPECTION - Neurological Exam Neurological exam: Alert, Oriented x3 - Psychiatric Exam Psychiatric exam: Normal Affect, Normal Mood - Skin Skin Exam: Dry, Intact, Warm Results - Vital Signs Recent Vital Signs: Last Vital Signs Temp 98.5 F 09/23/18 01:10 Pulse 75 09/23/18 01:10 Resp 18 09/23/18 01:10 BP 119/67 09/23/18 01:10 Pulse Ox 98 09/23/18 01:10 - Labs Result Diagrams: 09/23/18 01:07 09/23/18 01:07 Labs: Laboratory Results - last 24 hr 09/23/18 09/23/18 09/23/18 01:07 01:07 01:07 WBC 5.9 D RBC 2.77 L Hgb 6.2 L* D Hct 21.0 L MCV 75.8 L D MCH 22.4 L MCHC 29.5 L RDW 17.3 H Plt Count 226 MPV 10.9 Neut % (Auto) 54.2 Lymph % (Auto) 34.9 Cecil % (Auto) 7.5 H Eos % (Auto) 3.2 Baso % (Auto) 0.2 Lymph # (Auto) 2.1 Cecil # (Auto) 0.4 Eos # (Auto) 0.2 Baso # (Auto) 0.01 Absolute Neuts (auto) 3.18 Sodium 140 Potassium 3.6 Chloride 107 Carbon Dioxide 27 Anion Gap 10 BUN 15 Creatinine 0.7 Est GFR ( Amer) > 60 Est GFR (Non-Af Amer) > 60 Random Glucose 103 Calcium 8.2 L Magnesium 1.8 Total Bilirubin 0.2 AST 20 ALT 20 Alkaline Phosphatase 62 Troponin I < 0.01 NT-Pro-B Natriuret Pep 35.5 Total Protein 6.9 Albumin 3.5 Globulin 3.3 Albumin/Globulin Ratio 1.1 BBK History Checked Patient has bt Assessment & Plan - Assessment and Plan (Free Text) Assessment: 28 y/o F with PMH of AUB/menorrhagia requiring previous blood tranfusion, iron deficiency anemia, PCOS admitted for symptomatic anemia 2/2 heavy menstrual bleeding & concomitant NSAID use Plan: Symptomatic Anemia Urine hcg (-). CXR: neg. H/H: 6.2. Iron: 15L, TIBC: 402. %sat: 4 Refusing guiac, denies hematochezia. Pt is hemodynamically stable, resting comfo rtably, talking without respiratory distress Likely 2/2 menorrhagia/iron deficiency anemia + recent ibuprofen use Will transfuse 2u pRBC. Re-check H/H 4h post-transfusion Start IVF @ 100mls/hr Administer iron sucrose 200mg x 2 Pt has been advised on close follow-up outpatient as well as discussion about adjustment of oral contraceptive dose. CP, r/o ACS EKG:NSR @ 85 BPM, no ST elevation or depression Initial troponin: (-). CXR: neg Unlikely cardiac, likely 2/2 symptomatic anemia Trend troponin Q6H Repeat EKG in am Cardiology consulted, Dr. Johanny Orozco ordered Hx of PCOS No acute inpatient intervention Pt should follow up with Dr. Baker in outpatient setting DVT/GI ppx: SCD(avoid anticoagulation)/pepcid Case reviewed with attending physician, Dr. Billy Tomlin PGY1 <Leeann Cervantes - Last Filed: 09/23/18 06:48> Results - Vital Signs Recent Vital Signs: Last Vital Signs Temp 98.8 F 09/23/18 06:46 Pulse 81 09/23/18 06:46 Resp 18 09/23/18 06:46 BP 122/65 09/23/18 06:46 Pulse Ox 98 09/23/18 04:01 - Labs Result Diagrams: 09/23/18 01:07 09/23/18 01:07 Labs: Laboratory Results - last 24 hr 09/23/18 09/23/18 09/23/18 01:07 01:07 01:07 WBC 5.9 D RBC 2.77 L Hgb 6.2 L* D Hct 21.0 L MCV 75.8 L D MCH 22.4 L MCHC 29.5 L RDW 17.3 H Plt Count 226 MPV 10.9 Neut % (Auto) 54.2 Lymph % (Auto) 34.9 Cecil % (Auto) 7.5 H Eos % (Auto) 3.2 Baso % (Auto) 0.2 Lymph # (Auto) 2.1 Cecil # (Auto) 0.4 Eos # (Auto) 0.2 Baso # (Auto) 0.01 Absolute Neuts (auto) 3.18 Sodium 140 Potassium 3.6 Chloride 107 Carbon Dioxide 27 Anion Gap 10 BUN 15 Creatinine 0.7 Est GFR ( Amer) > 60 Est GFR (Non-Af Amer) > 60 Random Glucose 103 Calcium 8.2 L Magnesium 1.8 Iron TIBC % Saturation Total Bilirubin 0.2 AST 20 ALT 20 Alkaline Phosphatase 62 Troponin I < 0.01 NT-Pro-B Natriuret Pep 35.5 Total Protein 6.9 Albumin 3.5 Globulin 3.3 Albumin/Globulin Ratio 1.1 Urine Color Urine Appearance Urine pH Ur Specific [place] Urine Protein Urine Glucose (UA) Urine Ketones Urine Blood Urine Nitrate Urine Bilirubin Urine Urobilinogen Ur Leukocyte Esterase Blood Type O POSITIVE Antibody Screen Negative Crossmatch See Detail BBK History Checked Patient has bt 09/23/18 09/23/18 01:07 06:09 WBC RBC Hgb Hct MCV MCH MCHC RDW Plt Count MPV Neut % (Auto) Lymph % (Auto) Cecil % (Auto) Eos % (Auto) Baso % (Auto) Lymph # (Auto) Cecil # (Auto) Eos # (Auto) Baso # (Auto) Absolute Neuts (auto) Sodium Potassium Chloride Carbon Dioxide Anion Gap BUN Creatinine Est GFR ( Amer) Est GFR (Non-Af Amer) Random Glucose Calcium Magnesium Iron 15 L TIBC 402 % Saturation 4 L Total Bilirubin AST ALT Alkaline Phosphatase Troponin I NT-Pro-B Natriuret Pep Total Protein Albumin Globulin Albumin/Globulin Ratio Urine Color Yellow Urine Appearance Clear Urine pH 6.0 Ur Specific [place] 1.020 Urine Protein Negative Urine Glucose (UA) Negative Urine Ketones Negative Urine Blood Negative Urine Nitrate Negative Urine Bilirubin Negative Urine Urobilinogen 0.2 Ur Leukocyte Esterase Small H Blood Type Antibody Screen Crossmatch BBK History Checked Attending/Attestation - Attestation I have personally seen and examined this patient.: Yes I have fully participated in the care of the patient.: Yes I have reviewed all pertinent clinical information: Yes Notes (Text): 09/23/18 06:47Seen and examined. Discussed with resident. A&P as above.
[2018-09-23 02:21] LABS: IRON 15 ug/dL (45-180)
[2018-09-23 02:30] LABS: % IRON SATURATION 4 % (20-55); TOTAL IRON BINDING CAPACITY 402 ug/dL (265-497)
[2018-09-23 04:37] VITALS: BMI 33.8
[2018-09-23] MEDS: Sodium Chloride 0.9% 1,000 ML IV SCH (06:06)
[2018-09-23 06:21] LABS: URINE BILIRUBIN NEGATIVE (NEGATIVE); URINE BLOOD NEGATIVE (NEGATIVE); URINE GLUCOSE (UA) NEGATIVE (NEGATIVE); URINE LEUKOCYTE ESTERASE SMALL Leu/uL (NEGATIVE); URINE PROTEIN NEGATIVE mg/dL (<30 mg/dL); URINE UROBILINOGEN 0.2 E.U./dL (<1 E.U./dL)
[2018-09-23 06:27] LABS: URINE COLOR YELLOW (YELLOW)
[2018-09-23 06:28] LABS: URINE APPEARANCE CLEAR (CLEAR)
[2018-09-23 06:48] LABS: URINE BACTERIA FEW /hpf; URINE RBC 0 - 2 /hpf (0-2)
[2018-09-23 08:24] LABS: FREE T4 0.89 ng/dL (0.78-2.19)
[2018-09-23 08:35] LABS: HEMOGLOBIN 7.2 g/dL (12.0-16.0)
--- NOTE | 2018-09-23 08:40 | RAD ---
Date of service: 09/23/2018 HISTORY: fatigue COMPARISON: 03/12/2018 TECHNIQUE: 1 view obtained. FINDINGS: LUNGS: No active pulmonary disease. PLEURA: No significant pleural effusion identified, no pneumothorax apparent. CARDIOVASCULAR: No aortic atherosclerotic calcification present. Normal cardiac size. No pulmonary vascular congestion. OSSEOUS STRUCTURES: No significant abnormalities. VISUALIZED UPPER ABDOMEN: Normal. OTHER FINDINGS: None. IMPRESSION: No active disease.
[2018-09-23 08:49] LABS: INR 1.07; PARTIAL THROMBOPLASTIN TIME 28.4 Seconds (26.9-38.3); PROTHROMBIN TIME 12.1 SECONDS (9.4-12.5)
--- NOTE | 2018-09-23 15:11 | US ---
Date of service: 09/23/2018 HISTORY: menorrhagia LMP 07/21/2018. COMPARISON: 08/22/2018. Pelvic ultrasound. TECHNIQUE: Transvaginal only. Real -time technique with 2D, duplex and color Doppler FINDINGS: UTERUS: Measures 4.9 x 4.6 x 8.9 cm. Normal in size and appearance. No fibroid or other mass lesion seen. ENDOMETRIUM: Measures 6.1 mm in diameter. No ultrasound findings to suggest gestational sac, fluid, debris, mass or polyp or other pathologic process within the endometrium. CERVIX: No cervical abnormality identified. RIGHT OVARY: Measures 2.1 x 3 x 1.8 cm. No solid mass. Normal flow. Multiple subcentimeter follicles. LEFT OVARY: Measures 1.8 x 1.8 x 3.3 cm. No solid mass. Normal flow. Multiple subcentimeter follicles. FREE FLUID: No significant free fluid noted. OTHER FINDINGS: None. IMPRESSION: No acute or significant findings related to/ accounting for the clinical presentation. Additional benign and/or incidental findings described above. No significant interval change compared to the prior examination(s).
--- NOTE | 2018-09-23 19:13 | CARD ---
APPROVED REPORT Date of service: 09/23/2018 EKG Measurement Heart [id number] <Conclusion> Normal sinus rhythm Normal ECG
[2018-09-23] MEDS ORDERED: DiphenhydrAMINE 50 mg/ml Inj IVP ONE (20:11)
[2018-09-24] MEDS: Sodium Chloride 0.9% 1,000 ML IV SCH (05:20)
[2018-09-24 06:51] LABS: BASO # 0.03 K/mm3 (0.0-2.0); BASO % 0.4 % (0.0-3.0); EOS # 0.2 (0.0-0.7); EOS % 2.8 % (1.5-5.0); HEMOGLOBIN 8.5 g/dL (12.0-16.0); LYMPH # 1.9 (1.2-3.4); LYMPH % 26.5 % (22.0-35.0); MEAN CELL VOLUME 79.2 fl (80.0-105.0); MEAN CORPUSCULAR HEMOGLOBIN 23.6 pg (25.0-35.0); MEAN CORPUSCULAR HGB CONC 29.8 g/dl (31.0-37.0); MONO # 0.5 (0.1-0.6); MONO % 7.4 % (1.0-6.0); PLATELET COUNT 189 10^3/uL (120.0-450.0); RED CELL DISTRIBUTION WIDTH 17.3 % (11.5-14.5)
[2018-09-24 06:53] LABS: ALBUMIN 3.3 g/dL (3.0-4.8); ALT/SGPT 15 U/L (7-56); AST/SGOT 32 U/L (14-36); BLOOD UREA NITROGEN 11 mg/dL (7-21); CALCIUM 8.2 mg/dL (8.4-10.5); GFR NON-AFRICAN AMERICAN > 60
--- NOTE | 2018-09-24 13:33 | CP.PCM.DIS ---
<Domenica Winters - Last Filed: 09/24/18 15:33> Provider - Provider Date of Admission: 09/23/18 02:30 Attending physician: Nic Mills MD Consults: 09/23/18 03:32 Cardiology Consult Routine Comment: Consulting Provider: Susy Orlando Consulting Physician: Susy Orlando Reason for Consult: cp r/o ACS. symptomatic anemia 09/23/18 06:07 Physiatry Consult Routine Comment: c/o menometrorrhagia with clots >7 days Consulting Provider: Susie Carey Consulting Physician: Susie Carey Reason for Consult: r/o endometriosis;dyspeareunia, dyschezia, dysuria, pain w menses 09/23/18 11:30 Physician Consult Routine Comment: Consulting Provider: Shubham Osuna Consulting Physician: Shubham Osuna Reason for Consult: anemia, menorrhagia, hx of PCOS Time Spent in preparation of Discharge (in minutes): 60 Diagnosis - Discharge Diagnosis (1) Iron deficiency anemia due to chronic blood loss Status: Acute Priority: High (2) Heavy menstrual period Status: Chronic Priority: Medium (3) Anemia requiring transfusions Status: Resolved Priority: High Hospital Course - Lab Results Lab Results: Most Recent Lab Values WBC 7.0 10^3/uL (4.5-11.0) 09/24/18 05:00 RBC 3.60 10^6/uL (3.5-6.1) 09/24/18 05:00 Hgb 8.5 g/dL (12.0-16.0) L 09/24/18 05:00 Hct 28.5 % (36.0-48.0) L 09/24/18 05:00 MCV 79.2 fl (80.0-105.0) L D 09/24/18 05:00 MCH 23.6 pg (25.0-35.0) L 09/24/18 05:00 MCHC 29.8 g/dl (31.0-37.0) L 09/24/18 05:00 RDW 17.3 % (11.5-14.5) H 09/24/18 05:00 Plt Count 189 10^3/uL (120.0-450.0) 09/24/18 05:00 MPV 10.9 fl (7.0-11.0) 09/23/18 01:07 Neut % (Auto) 62.9 % (50.0-68.0) 09/24/18 05:00 Lymph % (Auto) 26.5 % (22.0-35.0) 09/24/18 05:00 Whiteside % (Auto) 7.4 % (1.0-6.0) H 09/24/18 05:00 Eos % (Auto) 2.8 % (1.5-5.0) 09/24/18 05:00 Baso % (Auto) 0.4 % (0.0-3.0) 09/24/18 05:00 Lymph # (Auto) 1.9 (1.2-3.4) 09/24/18 05:00 Whiteside # (Auto) 0.5 (0.1-0.6) 09/24/18 05:00 Eos # (Auto) 0.2 (0.0-0.7) 09/24/18 05:00 Baso # (Auto) 0.03 K/mm3 (0.0-2.0) 09/24/18 05:00 Absolute Neuts (auto) 4.41 (1.4-6.5) 09/24/18 05:00 PT 12.1 SECONDS (9.4-12.5) 09/23/18 08:20 INR 1.07 09/23/18 08:20 APTT 28.4 Seconds (26.9-38.3) 09/23/18 08:20 Sodium 142 mmol/L (132-148) 09/24/18 05:00 Potassium 4.0 mmol/L (3.6-5.0) 09/24/18 05:00 Chloride 111 mmol/L (98-107) H 09/24/18 05:00 Carbon Dioxide 25 mmol/L (21-33) 09/24/18 05:00 Anion Gap 11 (10-20) 09/24/18 05:00 BUN 11 mg/dL (7-21) 09/24/18 05:00 Creatinine 0.7 mg/dl (0.7-1.2) 09/24/18 05:00 Est GFR ( Amer) > 60 09/24/18 05:00 Est GFR (Non-Af Amer) > 60 09/24/18 05:00 Random Glucose 80 mg/dL (70-110) 09/24/18 05:00 Calcium 8.2 mg/dL (8.4-10.5) L 09/24/18 05:00 Phosphorus 2.8 mg/dL (2.5-4.5) 09/24/18 05:00 Magnesium 2.0 mg/dL (1.7-2.2) 09/24/18 02:10 Iron 15 ug/dL (45-180) L 09/23/18 01:07 TIBC 402 ug/dL (265-497) 09/23/18 01:07 % Saturation 4 % (20-55) L 09/23/18 01:07 Transferrin 305.15 mg/dL (206-381) 09/23/18 02:14 Ferritin 3.3 ng/mL 09/23/18 01:07 Total Bilirubin 0.2 mg/dL (0.2-1.3) 09/24/18 05:00 AST 32 U/L (14-36) 09/24/18 05:00 ALT 15 U/L (7-56) 09/24/18 05:00 Alkaline Phosphatase 60 U/L (38-126) 09/24/18 05:00 Troponin I < 0.01 ng/mL 09/23/18 14:20 NT-Pro-B Natriuret Pep 35.5 pg/mL (0-450) 09/23/18 01:07 Total Protein 6.6 g/dL (5.8-8.3) 09/24/18 05:00 Albumin 3.3 g/dL (3.0-4.8) 09/24/18 05:00 Globulin 3.3 gm/dL 09/24/18 05:00 Albumin/Globulin Ratio 1.0 (1.1-1.8) L 09/24/18 05:00 Free T4 0.89 ng/dL (0.78-2.19) 09/23/18 01:07 TSH 3rd Generation 2.96 mIU/mL (0.46-4.68) 09/23/18 01:07 Urine Color Yellow (YELLOW) 09/23/18 06:09 Urine Appearance Clear (CLEAR) 09/23/18 06:09 Urine pH 6.0 (4.7-8.0) 09/23/18 06:09 Ur Specific [place] 1.020 (1.005-1.035) 09/23/18 06:09 Urine Protein Negative mg/dL (<30 mg/dL) 09/23/18 06:09 Urine Glucose (UA) Negative mg/dL (NEGATIVE) 09/23/18 06:09 Urine Ketones Negative mg/dL (NEGATIVE) 09/23/18 06:09 Urine Blood Negative (NEGATIVE) 09/23/18 06:09 Urine Nitrate Negative (NEGATIVE) 09/23/18 06:09 Urine Bilirubin Negative (NEGATIVE) 09/23/18 06:09 Urine Urobilinogen 0.2 E.U./dL (<1 E.U./dL) 09/23/18 06:09 Ur Leukocyte Esterase Small Fabio/uL (NEGATIVE) H 09/23/18 06:09 Urine RBC 0 - 2 /hpf (0-2) 09/23/18 06:09 Urine WBC 2 - 5 /hpf (0-6) 09/23/18 06:09 Ur Epithelial Cells 1 - 3 /hpf (0-5) 09/23/18 06:09 Urine Bacteria Few /hpf (NONE) 09/23/18 06:09 Blood Type O POSITIVE 09/23/18 01:07 Antibody Screen Negative 09/23/18 01:07 Crossmatch See Detail 09/23/18 01:07 BBK History Checked Patient has bt 09/23/18 01:07 - Hospital Course Hospital Course: This is a 28 years old female with PMH abnormal uterine bleeding, menorrhagia, PCOS, who presented to ED with complaints excessive fatigue, shortness of breath with exertion and 7/10 substernal, pressure-like, non- radiating chest pain. She reports excessive fatigue and shortness of breath for several months that has recently become worse over the past 2 days. She states she become short of breath while walking and experiences concurrent chest pain. She reports chest pain began 2 days ago as well. Pt reports prolonged and irregular periods for past few years. Recently, patient reports that her LMP started on 07/21/2018, had daily bleeding for two months. It stopped on 09/20/2018. Patient reports using 4-6 sanitary pads per day. Patient reports taking her Norgestimate/ethinyl estradiol tablets recently since 09/17. Her rfid technician Dr Moy has given it to her, but reports that she is non- compliant at times. She denies fevers, chills, headache, dizziness, palpitations, numbness, tingling, palpitations, nausea, vomiting, constipation, diarrhea, dysuria, hematuria, hematochezia. Laboratory work revealed Hgb 6.7 on admission with MCV 75.8, patient transfused 2 units prbcs with Venofer 100 mg iV x2. Her post transfusion Hgb was 8.5. Her troponins were negative x3, EKG showed NSR at 85, no ST/T wave elevations. Post transfusion, patient's fatigue, dizziness, chest pain resolved. Patient was seen ambulating well to the bathroom and around the unit. Transvaginal US obtained showed endoemtrial diameter 6.1 mm, no other acute findings. Cardiology was consulted, who recommended no further testing. Gynecology Dr Osuna was consulted, who agreed with current management, recommended outpatient follow up with Business Support Coordinator regarding appropriate management of DUB with possibly progesterone based IUD. He agreed with discharging patient on iron tablets as well for her anemia. Patient was given this information, given prescriptions for iron tablets and colace as needed for constipation. Patient will follow up with her PMD and rfid technician within 3-5 days. Patient will also follow up with a contact center professional outpatient for her anemia. Patient was explained importance of compliance with her medication regimen, doctors' appointments. Patient verbalized understanding, all questions answered. Case seen and discussed with attending, Dr Brandy Garay. Discharge Exam - Head Exam Head Exam: NORMAL INSPECTION, NORMOCEPHALIC - Eye Exam Eye Exam: EOMI, PERRL. absent: Conjunctival injection, Nystagmus, Scleral ict erus Pupil Exam: NORMAL ACCOMODATION, PERRL. absent: Miosis, Mydriatic - ENT Exam ENT Exam: Mucous Membranes Moist - Neck Exam Neck exam: Full Rom - Respiratory Exam Respiratory Exam: Clear to PA & Lateral, NORMAL BREATHING PATTERN. absent: Chest Wall Tenderness, Decreased Breath Sounds, Rales, Rhonchi, Wheezes, Stridor - Cardiovascular Exam Cardiovascular Exam: RRR, +S1, +S2. absent: Tachycardia, Systolic Murmur - GI/Abdominal Exam GI & Abdominal Exam: Normal Bowel Sounds, Soft. absent: Distended, Firm, Mass, Organomegaly, Pulsatile Mass, Rebound, Rigid, Tenderness - Extremities Exam Extremities exam: normal inspection - Back Exam Back exam: NORMAL INSPECTION - Neurological Exam Neurological exam: Alert, Oriented x3 - Psychiatric Exam Psychiatric exam: Normal Affect, Normal Mood - Skin Skin Exam: Dry, Normal Color, Warm Discharge Plan - Discharge Medications Prescriptions: Docusate [Colace] 100 mg PO DAILY PRN #14 cap PRN Reason: Constipation Ferrous Gluconate [Fergon] 324 mg PO TID #42 tab - Follow Up Plan Condition: STABLE Disposition: HOME/ ROUTINE Instructions: Anemia Caused by Low Iron, Adult (DC), Heavy Periods (DC) Additional Instructions: - Follow up with your primary care doctor at [facility] within 3-5 days. - Follow up with your rfid technician Dr. Baker or any other rfid technician of your choice within 3-5 days regarding controlling and regulating your menstrual period. The rfid technician flight communications officer at the hospital, Dr Osuna, recommended Progesterone releasing IUD to regulate your bleeding. Please discuss these options with your rfid technician. - Please take iron tablets 1 tablet three times a day by mouth. Iron tablets can cause constipation. So you can take colace 100 mg 1 tablet daily by mouth as needed for constipation. - You can also follow up with a contact center professional (blood doctor) outpatient within 1 week, for your anemia, please discuss with your primary care doctor. - Return to the emergency room for any new or concerning symptoms. Referrals: Jennifer Baker MD [Medical Doctor] - Shubham Osuna MD [Staff Provider] - <Keysha Garay R - Last Filed: 09/25/18 08:13> Provider - Provider Date of Admission: 09/23/18 02:30 Attending physician: Nic Mills MD Consults: 09/23/18 03:32 Cardiology Consult Routine Comment: Consulting Provider: Susy Orlando Consulting Physician: Susy Orlando Reason for Consult: cp r/o ACS. symptomatic anemia 09/23/18 06:07 Physiatry Consult Routine Comment: c/o menometrorrhagia with clots >7 days Consulting Provider: Susie Carey Consulting Physician: Susie Carey Reason for Consult: r/o endometriosis;dyspeareunia, dyschezia, dysuria, pain w menses 09/23/18 11:30 Physician Consult Routine Comment: Consulting Provider: Shubham Osuna Consulting Physician: Shubham Osuna Reason for Consult: anemia, menorrhagia, hx of PCOS Hospital Course - Lab Results Lab Results: Most Recent Lab Values WBC 7.0 10^3/uL (4.5-11.0) 09/24/18 05:00 RBC 3.60 10^6/uL (3.5-6.1) 09/24/18 05:00 Hgb 8.5 g/dL (12.0-16.0) L 09/24/18 05:00 Hct 28.5 % (36.0-48.0) L 09/24/18 05:00 MCV 79.2 fl (80.0-105.0) L D 09/24/18 05:00 MCH 23.6 pg (25.0-35.0) L 09/24/18 05:00 MCHC 29.8 g/dl (31.0-37.0) L 09/24/18 05:00 RDW 17.3 % (11.5-14.5) H 09/24/18 05:00 Plt Count 189 10^3/uL (120.0-450.0) 09/24/18 05:00 MPV 10.9 fl (7.0-11.0) 09/23/18 01:07 Neut % (Auto) 62.9 % (50.0-68.0) 09/24/18 05:00 Lymph % (Auto) 26.5 % (22.0-35.0) 09/24/18 05:00 Whiteside % (Auto) 7.4 % (1.0-6.0) H 09/24/18 05:00 Eos % (Auto) 2.8 % (1.5-5.0) 09/24/18 05:00 Baso % (Auto) 0.4 % (0.0-3.0) 09/24/18 05:00 Lymph # (Auto) 1.9 (1.2-3.4) 09/24/18 05:00 [place] # (Auto) 0.5 (0.1-0.6) 09/24/18 05:00 Eos # (Auto) 0.2 (0.0-0.7) 09/24/18 05:00 Baso # (Auto) 0.03 K/mm3 (0.0-2.0) 09/24/18 05:00 Absolute Neuts (auto) 4.41 (1.4-6.5) 09/24/18 05:00 PT 12.1 SECONDS (9.4-12.5) 09/23/18 08:20 INR 1.07 09/23/18 08:20 APTT 28.4 Seconds (26.9-38.3) 09/23/18 08:20 Sodium 142 mmol/L (132-148) 09/24/18 05:00 Potassium 4.0 mmol/L (3.6-5.0) 09/24/18 05:00 Chloride 111 mmol/L (98-107) H 09/24/18 05:00 Carbon Dioxide 25 mmol/L (21-33) 09/24/18 05:00 Anion Gap 11 (10-20) 09/24/18 05:00 BUN 11 mg/dL (7-21) 09/24/18 05:00 Creatinine 0.7 mg/dl (0.7-1.2) 09/24/18 05:00 Est GFR ( Amer) > 60 09/24/18 05:00 Est GFR (Non-Af Amer) > 60 09/24/18 05:00 Random Glucose 80 mg/dL (70-110) 09/24/18 05:00 Calcium 8.2 mg/dL (8.4-10.5) L 09/24/18 05:00 Phosphorus 2.8 mg/dL (2.5-4.5) 09/24/18 05:00 Magnesium 2.0 mg/dL (1.7-2.2) 09/24/18 02:10 Iron 15 ug/dL (45-180) L 09/23/18 01:07 TIBC 402 ug/dL (265-497) 09/23/18 01:07 % Saturation 4 % (20-55) L 09/23/18 01:07 Transferrin 305.15 mg/dL (206-381) 09/23/18 02:14 Ferritin 3.3 ng/mL 09/23/18 01:07 Total Bilirubin 0.2 mg/dL (0.2-1.3) 09/24/18 05:00 AST 32 U/L (14-36) 09/24/18 05:00 ALT 15 U/L (7-56) 09/24/18 05:00 Alkaline Phosphatase 60 U/L (38-126) 09/24/18 05:00 Troponin I < 0.01 ng/mL 09/23/18 14:20 NT-Pro-B Natriuret Pep 35.5 pg/mL (0-450) 09/23/18 01:07 Total Protein 6.6 g/dL (5.8-8.3) 09/24/18 05:00 Albumin 3.3 g/dL (3.0-4.8) 09/24/18 05:00 Globulin 3.3 gm/dL 09/24/18 05:00 Albumin/Globulin Ratio 1.0 (1.1-1.8) L 09/24/18 05:00 Free T4 0.89 ng/dL (0.78-2.19) 09/23/18 01:07 TSH 3rd Generation 2.96 mIU/mL (0.46-4.68) 09/23/18 01:07 Urine Color Yellow (YELLOW) 09/23/18 06:09 Urine Appearance Clear (CLEAR) 09/23/18 06:09 Urine pH 6.0 (4.7-8.0) 09/23/18 06:09 Ur Specific [place] 1.020 (1.005-1.035) 09/23/18 06:09 Urine Protein Negative mg/dL (<30 mg/dL) 09/23/18 06:09 Urine Glucose (UA) Negative mg/dL (NEGATIVE) 09/23/18 06:09 Urine Ketones Negative mg/dL (NEGATIVE) 09/23/18 06:09 Urine Blood Negative (NEGATIVE) 09/23/18 06:09 Urine Nitrate Negative (NEGATIVE) 09/23/18 06:09 Urine Bilirubin Negative (NEGATIVE) 09/23/18 06:09 Urine Urobilinogen 0.2 E.U./dL (<1 E.U./dL) 09/23/18 06:09 Ur Leukocyte Esterase Small Faboi/uL (NEGATIVE) H 09/23/18 06:09 Urine RBC 0 - 2 /hpf (0-2) 09/23/18 06:09 Urine WBC 2 - 5 /hpf (0-6) 09/23/18 06:09 Ur Epithelial Cells 1 - 3 /hpf (0-5) 09/23/18 06:09 Urine Bacteria Few /hpf (NONE) 09/23/18 06:09 Blood Type O POSITIVE 09/23/18 01:07 Antibody Screen Negative 09/23/18 01:07 Crossmatch See Detail 09/23/18 01:07 BBK History Checked Patient has bt 09/23/18 01:07 Attending/Attestation - Attestation I have personally seen and examined this patient.: Yes I have fully participated in the care of the patient.: Yes I have reviewed all pertinent clinical information, including history, physical exam and plan: Yes Notes (Text): Please note this DC summary is for 09/24/18 Patient seen and examined by me with resident at approximately 9:15AM and prior to discharge on 09/14/18. Case including discharge plan discussed with resident. Agree with above with following additions/corrections. Patient is a 28 year old female with past medical history significant for abnormal uterine bleeding, menorrhagia, and PCOS that presented to the emergency room with excessive fatigue, shortness of breath, and chest pain. Please see H&P for full details. Patient was found to have symptomatic anemia, chest pain, and PCOS. Anemia likely secondary to menorrhagia. Patient was also found to be iron deficient. Iron level was 15 and % saturation was 4. Patient was transfused 2 units PRBC with improvement. Hgb on admission was 7.2 and 8.5 on discharge. Transvaginal ultrasound showed no acute or significant findings. flight steward was consulted. Case was discussed with Dr. Osuna. Per Dr. Osuna, patient was cleared for discharge from his stand point with outpatient follow up and iron. Patient also complained of chest pain, likely secondary to anemia. Chest pain resolved. Troponins were within normal limits. Patient was seen and cleared for discharge by construction carpenter. Patient also with a history of PCOS and advised to continue follow up with her doctor. Patient was feeling much better. Symptoms resolved. Patient was cleared for discharge by all consultants. Patient was discharged home. On day of discharge, patient stated she was feeling much better. Patient stated chest pain was resolved and the last time she had chest pain was at 8PM the night before. No palpitations. No shortness of breath. She denied any vaginal bleeding. No nausea, vomiting, or abdominal pain. No headaches or dizziness. No fevers or chills. No dysuria. No change in vision. Patient was ambulating well. Physical exam: General: Awake and alert lying in bed in no acute distress HEENT: Normocephalic, atraumatic. Extraocular muscles intact. Pupils equal and reactive, no scleral icterus. Oropharynx is pink. Neck is supple. Cardiovascular: Normal rhythm. Normal S1 and S2. No murmurs, rubs, or gallops appreciated Pulmonary: Normal respiratory effort. No rhonchi, rales, or wheezing appreciated Gastrointestinal: Soft, nondistended. Nontender. Positive bowel sounds all 4 quadrants. No guarding. Musculoskeletal: Moves all extremities. No calf tenderness. No edema appreciated. Central nervous system: AAOx3, no focal deficits Dermatologic: Skin warm and dry. Please see chart for full details. Follow up instructions: Patient to follow up with PMD within 3-5 days. Patient to follow up with rfid technician within 3-5 days. Patient to take iron pills. Patient can follow up with a contact center professional for anemia. All instructions explained to the patient in detail. Patient both understands and agrees to all instructions. Written instructions also given. Time spent in discharging the patient including chart review, medication reconciliation, discussion with the patient, medical collector, consultants, and nursing staff was approximately 40 minutes.
[2018-09-24 16:19] VITALS: BP 110/67; PULSE 78; RESP 18; TEMP 0; O2SAT 98
--- NOTE | 2018-09-24 22:36 | CON ---
DATE: 09/24/2018 HISTORY OF PRESENT ILLNESS: The patient is a 28-year-old woman with longstanding vaginal bleeding treated by her associate programmer. She presented with an episode of shortness of breath and atypical chest pain when her hemoglobin went down to 6. After transfusion at the hospital, her symptoms have resolved. There is no previous cardiac history. No previous chest pain. No family history for CAD. She has no cardiac risk factors for cardiac disease. SOCIAL HISTORY: The patient does not smoke. REVIEW OF SYSTEMS: Negative. Now that her hemoglobin is of 8. PHYSICAL EXAMINATION: VITAL SIGNS: The blood pressure 110/67, heart rate is in the 70s. NECK: Negative JVD. LUNGS: Without rales. HEART: S1, S2. EXTREMITIES: Without edema. EKG is unremarkable. LABORATORY DATA: Hemoglobin is 8.5 now. Troponins are negative x2. IMPRESSION: 1. Resolution of atypical chest pain. 2. Shortness of breath after her severe anemia, is improved. PLAN: No further cardiac workup is necessary at this time. The patient will follow up with her associate programmer. Hussain Stewart MD
== END 2018-09-24 17:17 | disposition home or self-care (01) ==
LOC: ED 00:15 → ERH 02:30 → 3RNO 04:00
PROVIDERS: ADMIT Internal Medicine; ATTEND Internal Medicine
DX: D50.0 Iron deficiency anemia secondary to blood loss (chronic) (principal); E28.2 Polycystic ovarian syndrome; N92.0 Excessive and frequent menstruation with regular cycle; R07.89 Other chest pain; R06.02 Shortness of breath; Z91.19 Patient's noncompliance with other medical treatment and regimen
CPT/HCPCS: 36415; 36430; 71045; 76830; 80053; 81001; 81025; 82728; 83735; 83880; 84100; 84439; 84443; 84466; 84484; 85014; 85018; 85025; 85610; 85730; 86850; 86900; 86920; 93005; 99285; G0378; J1200; J1756; J7030; P9016